=== PATIENT | female | born 1985 | race Hispanic/Latino ===

== ENCOUNTER 2017-08-04 19:37 | Emergency (ER) | payer SELFPAY ==
[2017-08-04 20:55] VITALS: BP 129/81
[2017-08-04 21:16] LABS: Basophils # (Auto) 0.1 K/mm3 (0.0-0.1); Basophils % (Auto) 1.2 % (0.0-1.8); Eosinophils % (Auto) 0.6 % (0.0-4.3); Hemoglobin 9.7 gm/dl (10.1-14.3); Lymphocytes # (Auto) 2.2 K/mm3 (1.2-5.4); Lymphocytes % (Auto) 27.8 % (13.4-35.0); Mean Corpuscular HGB Conc 30 % (30-34); Mean Corpuscular Volume 75 fl (79-97); Monocytes # (Auto) 0.9 K/mm3 (0.0-0.8); Monocytes % (Auto) 11.4 % (0.0-7.3); Platelet Count 276 K/mm3 (140-440); Red Blood Count 4.31 M/mm3 (3.65-5.03)
[2017-08-04 21:17] LABS: Hematocrit 32.1 % (30.3-42.9); Mean Corpuscular Hemoglobin 23 pg (28-32); Red Cell Distribution Width 21.1 % (13.2-15.2)
[2017-08-04 21:26] LABS: BUN/Creatinine Ratio 10; Blood Urea Nitrogen 6 mg/dL (7-17); Calcium 8.2 mg/dL (8.4-10.2); Hemolysis Index 1
== END 2017-08-04 21:20 | disposition left against medical advice (07) ==
LOC: ED 19:37
DX: Z53.21 Procedure and treatment not carried out due to patient leaving prior to being seen by health care provider (principal)
CPT/HCPCS: 36415; 80048; 85025; G0480; 80320

== ENCOUNTER 2020-11-18 12:15 | Inpatient (IN) | payer OTHER ==
--- NOTE | 2020-11-18 12:38 | Event Note ---
ED Screening Note Date of service: 11/18/20 Time: 12:36 ED Screening Note: 35-year-old female presents to the emergency room for a 1 day history of abdominal pain and 5-day history of bilateral leg pain. She has a past medical history of a gastric bypass in 2011 hysterectomy in 2019 tubal ligation in 2014. Patient came via EMS. She has multiple allergies to foods NSAIDs tramadol and aspirin. She currently takes BuSpar and Prozac. This initial assessment/diagnostic orders/clinical plan/treatment(s) is/are subject to change based on patients health status, clinical progression and re- assessment by fellow clinical providers in the ED. Further treatment and workup at subsequent clinical providers discretion. Patient/guardian urged not to elope from the ED as their condition may be serious if not clinically assessed and managed. Initial orders include:
[2020-11-18 14:41] LABS: Hematocrit 26.8 % (30.3-42.9); Mean Corpuscular HGB Conc 34 % (30-34); Mean Corpuscular Volume 93 fl (79-97); Platelet Count 109 K/mm3 (140-440); Red Blood Count 2.88 M/mm3 (3.65-5.03); Red Cell Distribution Width 29.7 % (13.2-15.2)
[2020-11-18 15:37] LABS: Alanine Aminotransferase 41 units/L (7-56); Albumin 3.1 g/dL (3.9-5); Blood Urea Nitrogen 9 mg/dL (7-17); Calcium 8.2 mg/dL (8.4-10.2); Hemolysis Index 0
[2020-11-18 15:40] LABS: BUN/Creatinine Ratio 45
[2020-11-18 16:00] LABS: Amphetamine Screen,Urine Negative; Benzodiazepines Screen,Urine Negative; Cannabinoid Screen,Urine Negative; Cocaine Screen,Urine Negative; Methadone Screen,Urine Negative; Opiate Screen,Urine Negative
[2020-11-18 16:20] LABS: Mucus,Urine 3+ /HPF
[2020-11-18 16:21] LABS: Color,Urine Amber (Yellow)
[2020-11-18 16:22] LABS: Bilirubin,Urine Moderate (Negative); Blood,Urine Small (Negative)
[2020-11-18 16:23] LABS: Protein,Urine <15 mg/dL mg/dL (Negative); Urobilinogen,Urine < 2.0 mg/dL (<2.0)
[2020-11-18] MEDS ORDERED: THIAMINE 100 MG, FOLIC ACID 1 MG, MULTIPLE VITAMIN INJ, ADULT 10 ML in SODIUM CHLORIDE ... IV ONE (17:02)
[2020-11-18] MEDS ORDERED: ONDANSETRON 4 MG/2 ML INJ IV ONE (17:02)
[2020-11-18] MEDS ORDERED: SODIUM CHLORIDE 0.9% 1000 ML 1,000 ML IV ONE (17:02)
[2020-11-18] MEDS ORDERED: HYDROmorphone 1 MG/1 ML INJ IV ONE ×2 (17:02→20:10)
--- NOTE | 2020-11-18 17:13 | Emergency Department Report ---
- General Chief complaint: Fall Stated complaint: BILATERAL LEG PAIN/ABD PAIN PUI?: No Time Seen by Provider: 11/18/20 17:01 Source: EMS Mode of arrival: Stretcher Limitations: No Limitations - History of Present Illness Initial comments: Patient is a 35-year-old female that presents emergency room with complaints of bilateral lower extremity pain. Patient states she was removed from her knees to her pelvis. Patient states the pain started 4 days ago when she fell. Patient states she fell 4 days ago due to weakness. Patient states that she is a heavy drinker and stopped drinking approximately 4 days ago. Patient denies seizure. Patient denies passing out. Patient denies loss of consciousness patient denies hitting her head. Patient states that she tends to get a little bit weak after she drinks heavily for some many days and then quits. Patient denies chest pain. Patient denies shortness of breath. Patient states the pain in her legs and thighs and pelvis are a 10 out of 10. Patient states the pain is better with rest and worse with palpation and movement. Patient states she is been a heavy drinker for many years. Patient complains of nausea and vomiting. Patient states she is having generalized abdominal pain. Patient states that the pain is worsening. Patient also complains of abdominal fullness. Patient states the abdominal pain is a pressure. Patient states that pain is better with rest and worse with movement. Patient states her abdominal pain is a 5 out of 10. Patient denies recent travel. Patient denies recent international travel. Patient denies exposure to the novel coronavirus. Patient denies sick contacts. Patient denies fever and chills. Patient denies cough. Patient denies diarrhea. Patient denies coming in contact with anybody with symptoms of the novel coronavirus. Complaint: generalized weakness -: Sudden, days(s) Location: generalized Severity: severe Severity scale (0 -10): 8 Consistency: constant Improves with: rest Worsens with: movement Associated Symptoms: loss of appetite, nausea/vomiting. denies: chest pain, confusion, dark stools, diaphoresis, dysuria, fever/chills, headaches, rash, shortness of breath, syncope - Related Data Allergies Allergy/AdvReac Type Severity Reaction Status Date / Time NSAIDS (Non-Steroidal Allergy Unknown Verified 11/18/20 17:15 Anti-Inflamma ED Review of Systems ROS: Stated complaint: BILATERAL LEG PAIN/ABD PAIN Other details as noted in HPI Constitutional: weakness. denies: chills, fever Eyes: denies: eye pain, eye discharge, vision change ENT: denies: ear pain, throat pain Respiratory: denies: cough, shortness of breath, wheezing Cardiovascular: denies: chest pain, palpitations Endocrine: no symptoms reported Gastrointestinal: as per HPI, nausea, vomiting. denies: abdominal pain, diarrhea Genitourinary: denies: urgency, dysuria, discharge Musculoskeletal: denies: back pain, joint swelling, arthralgia Skin: denies: rash, lesions Neurological: as per HPI, weakness. denies: headache, paresthesias Psychiatric: denies: anxiety, depression Hematological/Lymphatic: denies: easy bleeding, easy bruising ED Past Medical Hx - Past Medical History Previous Medical History?: Yes Hx Psychiatric Treatment: Yes (anxiety,depression) Additional medical history: alcohol abuse,DJD, gastric bypass - Surgical History Past Surgical History?: Yes Additional Surgical History: gastric bypass - Family History Family history: no significant - Social History Smoking Status: Unknown if ever smoked Substance Use Type: Alcohol ED Physical Exam - General Limitations: No Limitations General appearance: alert, in no apparent distress - Head Head exam: Present: atraumatic, normocephalic - Eye Eye exam: Present: normal appearance - ENT ENT exam: Present: mucous membranes moist - Neck Neck exam: Present: normal inspection - Respiratory Respiratory exam: Present: normal lung sounds bilaterally. Absent: respiratory distress, wheezes, rales - Cardiovascular Cardiovascular Exam: Present: regular rate, normal rhythm. Absent: systolic murmur, diastolic murmur, rubs, gallop - GI/Abdominal GI/Abdominal exam: Present: soft, normal bowel sounds. Absent: tenderness, guarding, rebound - Extremities Exam Extremities exam: Present: normal inspection - Back Exam Back exam: Present: normal inspection - Neurological Exam Neurological exam: Present: alert, oriented X3 - Psychiatric Psychiatric exam: Present: normal affect, normal mood - Skin Skin exam: Present: warm, dry, intact, normal color. Absent: rash - Assessment Assessment Interval: Baseline - Level of Consciousness 1a. Level of Consciousness: alert/keenly responsive - LOC Questions 1b. LOC Questions: answers both correctly - LOC Command 1c. LOC Commands: performs tasks correctly - Best Gaze 2. Best Gaze: normal - Visual 3. Visual: no visual loss - Facial Palsy 4. Facial Palsy: normal symmetrical movement - Motor Arm 5a. Motor Arm Left: no drift 5b. Motor Arm Right: no drift - Motor Leg 6a. Motor Leg Left: no drift 6b. Motor Leg Right: no drift - Limb Ataxia 7. Limb Ataxia: absent - Sensory 8. Sensory: normal - Best Language 9. Best Language: no aphasia - Dysarthria 10. Dysarthria: normal - Extinction and Inattention 11. Extinction/Inattention: no abnormality - Scoring Total Score: 0 Stroke Severity: No Stroke Symptoms ED Course Vital Signs 11/18/20 11/18/20 11/18/20 12:34 12:42 18:49 Temperature 99.1 F Pulse Rate 115 H 110 H Respiratory 22 12 Rate Blood Pressure Blood Pressure 112/57 [112/57] O2 Sat by Pulse 99 Oximetry 11/18/20 11/18/20 11/18/20 19:01 19:13 19:15 Temperature Pulse Rate 104 H 102 H Respiratory 18 17 17 Rate Blood Pressure 126/76 126/76 Blood Pressure [112/57] O2 Sat by Pulse 99 100 Oximetry 11/18/20 11/18/20 11/18/20 19:31 19:45 20:01 Temperature Pulse Rate 107 H 103 H 104 H Respiratory 15 13 13 Rate Blood Pressure 110/69 110/69 110/69 Blood Pressure [112/57] O2 Sat by Pulse 100 99 99 Oximetry 11/18/20 11/18/20 11/18/20 20:15 20:31 20:45 Temperature Pulse Rate 101 H 107 H 109 H Respiratory 12 16 14 Rate Blood Pressure 110/69 110/69 110/69 Blood Pressure [112/57] O2 Sat by Pulse 100 100 99 Oximetry 11/18/20 11/18/20 11/18/20 21:01 21:15 21:31 Temperature Pulse Rate 126 H 121 H 120 H Respiratory 13 10 L 15 Rate Blood Pressure 110/69 110/69 110/69 Blood Pressure [112/57] O2 Sat by Pulse 99 Oximetry 11/18/20 11/18/20 11/18/20 21:45 22:01 22:15 Temperature Pulse Rate 117 H 116 H 112 H Respiratory 16 13 15 Rate Blood Pressure 110/69 110/69 110/69 Blood Pressure [112/57] O2 Sat by Pulse Oximetry - Reevaluation(s) Reevaluation #1: Patient states her pain is better. 11/18/20 18:07 Reevaluation #2: Patient states her pain is returned. Patient was given another milligram Dilaudid. I discussed all results with patient. I discussed plan of care with patient. Patient agrees with plan of care and admission. Patient to be admitted to the hospitalist service. 11/18/20 20:08 - Consultations Consultation #1: I discussed the case with Dr. Ochoa and Dr. Ochoa wants the patient to be admitted so that he can examine the patient since there was a finding of a possible appendicitis on CT scan. 11/18/20 20:06 Consultation #2: Hospitalist consulted for admission. Hospitalist to admit patient. 11/18/20 20:30 ED Medical Decision Making - Lab Data Result diagrams: 11/18/20 13:23 11/18/20 13:23 - Radiology Data Radiology results: report reviewed CT abdomen pelvis w con INDICATION / CLINICAL INFORMATION: abd pain. n/v. TECHNIQUE: Routine CT abdomen pelvis with contrast All CT scans at this location are performed using CT dose reduction for ALARA by means of automated exposure control. COMPARISON: None available. FINDINGS: Abdomen and pelvis: Severe fatty liver. The gallbladder contains moderate sludge. The spleen, pancreas adrenal glands and kidneys are unremarkable. There is evidence of gastric bypass. There is moderate free fluid throughout much of the abdomen and lower pelvis. There is some nonspecific thickening identified within the cecum and ascending colon with extension into the proximal transverse colon. The appendix is difficult to visualize but appears to be located within the irregular fluid within the right paracolic gutter making evaluation difficult. The uterus is unremarkable. Urinary bladder is unremarkable. Review of the lower chest demonstrates no acute findings. IMPRESSION: 1. Abnormal colonic wall mucosal thickening involving the cecum, ascending colon concerning for mild colitis. There is some fluid identified throughout much of the pelvis along the right paracolic gutter. 2. The appendix is only partially visualized but appears to be surrounded by fluid from the right paracolic gutter. It is unclear if this is secondary to generalized ascites or actual underlying inflammation of the appendix. 3. Severe fatty liver - Medical Decision Making Patient is a 35-year-old female that presents emergency room with multiple complaints. Patient complains of weakness, abdominal pain, nausea, vomiting, and knee pain, thigh pain, pelvic pain secondary to fall. Patient recently stopped drinking alcohol. Patient has been drinking heavily for years. Patient stopped drinking 4 days ago. Patient denies any seizure or tremors. Patient had labs done which were remarkable for abnormal LFTs, electrolyte imbalance, dehydration, UTI. Patient given IV fluids, banana bag and Dilaudid for pain. Patient also given Zofran for nausea. Patient given IV antibiotics. Patient had a CT scan of the abdomen which showed ascites and a possible appendicitis. I discussed the case with general surgery general surgery wants patient admitted for observation and reevaluation. Patient admitted to the hospital service for further evaluation treatment. Critical care time documented due to the multiple reassessments, prolonged time at the bedside, interpretation of diagnostics and labs and discussion with consultants.. - Differential Diagnosis Fall, abdominal pain, ascites, appendicitis, UTI, contusion, sprain, strain Critical Care Time: Yes Critical care time in (mins) excluding proc time.: 35 Critical care attestation.: If time is entered above; I have spent that time in minutes in the direct care of this critically ill patient, excluding procedure time. Critical Care Time: 35 minutes ED Disposition Clinical Impression: Abnormal LFTs, Bilateral thigh pain, Pelvic pain, Alcohol abuse Abdominal pain Qualifiers: Abdominal location: generalized Qualified Code(s): R10.84 - Generalized abdominal pain Appendicitis Qualifiers: Appendicitis type: acute appendicitis Acute appendicitis type: unspecified acute appendicitis type Qualified Code(s): K35.80 - Unspecified acute appendicitis Urinary tract infection Qualifiers: Urinary tract infection type: acute cystitis Hematuria presence: with hematuria Qualified Code(s): N30.01 - Acute cystitis with hematuria Fall Qualifiers: Encounter type: initial encounter Qualified Code(s): W19.XXXA - Unspecified fall, initial encounter Knee pain, bilateral Qualifiers: Chronicity: acute Qualified Code(s): M25.561 - Pain in right knee; M25.562 - Pain in left knee Knee contusion Qualifiers: Encounter type: initial encounter Laterality: unspecified laterality Qualified Code(s): S80.00XA - Contusion of unspecified knee, initial encounter Abdominal ascites Qualifiers: Ascites type: other type Qualified Code(s): R18.8 - Other ascites Anemia Qualifiers: Anemia type: unspecified type Qualified Code(s): D64.9 - Anemia, unspecified Disposition: DC-[id number] OP ADMIT IP TO THIS HOSP Is pt being admited?: Yes Does the pt Need Aspirin: No Condition: Critical Time of Disposition: 20:13
[2020-11-18 17:37] LABS: Band Neutrophils # (Manual) 0.2 K/mm3; Total Cells Counted 100
[2020-11-18 17:41] LABS: Anisocytosis 2+; Hypochromasia 2+; Platelet Estimate Consistent w Auto; Target Cells 1+
--- NOTE | 2020-11-18 19:01 | Cat Scan Report ---
CT abdomen pelvis w con INDICATION / CLINICAL INFORMATION: abd pain. n/v. TECHNIQUE: Routine CT abdomen pelvis with contrast All CT scans at this location are performed using CT dose red uction for ALARA by means of automated exposure control. COMPARISON: None available. FINDINGS: Abdomen and pelvis: Severe fatty liver. The gallbladder contains moderate sludge. The spleen, pancrea s adrenal glands and kidneys are unremarkable. There is evidence of gastric bypass. There is moderate free fluid throughout much of the abdomen and lower pelvis. There is some nonspecific thickening identified within the cecum and ascending colon wi th extension into the proximal transverse colon. The appendix is difficult to visualize but appears t o be located within the irregular fluid within the right paracolic gutter making evaluation difficult . The uterus is unremarkable. Urinary bladder is unremarkable. Review of the lower chest demonstrates no acute findings. IMPRESSION: 1. Abnormal colonic wall mucosal thickening involving the cecum, ascending colon concerning for mild colitis. There is some fluid identified throughout much of the pelvis along the right paracolic gutte r. 2. The appendix is only partially visualized but appears to be surrounded by fluid from the right par acolic gutter. It is unclear if this is secondary to generalized ascites or actual underlying inflamm ation of the appendix. 3. Severe fatty liver Signer Name: Maikol Hickman MD Signed: 11/18/2020 6:56 PM Workstation Name: [email or web address]
--- NOTE | 2020-11-18 19:39 | XRay Report ---
[facility] CLINICAL DATA: fall. pain TECHNICAL DATA: Two views were obtained, AP and lateral FINDINGS: There is no acute fracture or dislocation. The visualized joint spaces are normal. IMPRESSION: No acute radiographic abnormality. Signer Name: Ronnie Walls MD Signed: 11/18/2020 7:35 PM Workstation Name: [id number]
[2020-11-18] MEDS ORDERED: cefTRIAXone/NS 2 GM/100 ML 2 GM/100 ML BAG IV ONE (20:03)
[2020-11-18] MEDS ORDERED: PIPERACIL/TAZOBACTA 4.5/NS 100 4.5 GM/100 ML VIAL IV ONE (20:09)
[2020-11-18] MEDS ORDERED: POTASSIUM CHLORIDE 20 MEQ 20 MEQ/100 ML BAG IV ONE (20:10)
[2020-11-18] MEDS ORDERED: LORazepam 2 MG/ML VIAL IV PRN ×2 (20:12)
--- NOTE | 2020-11-18 20:37 | XRay Report ---
HISTORY:pain. fall COMPARISON: None. TECHNIQUE: AP lateral and obliques views were obtained FINDINGS: Bones: No fracture or dislocation. Joint spaces: Maintained. Soft tissues: No significant abnormality. Additional findings: None. IMPRESSION: 1. No significant abnormality. Signer Name: Ronnie Walls MD Signed: 11/18/2020 8:32 PM Workstation Name: [id number]
[2020-11-18] MEDS ORDERED: ALBUTEROL 2.5 MG/3 ML NEBU IH PRN (21:43)
[2020-11-18] MEDS ORDERED: hydrALAZINE 20 MG/1 ML INJ IV PRN (21:44)
--- NOTE | 2020-11-18 21:51 | History and Physical Report ---
History of Present Illness Date of examination: 11/18/20 Date of admission: 11/18/20 20:16 Chief complaint: Bilateral leg pain Abdominal pain History of present illness: 35-year-old female with past medical history of alcohol abuse, anxiety depression was brought to the emergency room because of bilateral lower extremity pain. Patient states the pain started 4 days ago when she fell. Patient states she fell 4 days ago due to weakness. Patient states that she is a heavy drinker and stopped drinking approximately 4 days ago. Patient denies seizure. Patient denies passing out. Patient denies loss of consciousness patient denies hitting her head. Patient states that she tends to get a little bit weak after she drinks heavily for some many days and then quits. Patient denies chest pain. Patient denies shortness of breath. Patient states the pain in her legs and thighs and pelvis are a 10 out of 10. Patient states the pain is better with rest and worse with palpation and movement. Patient states she is been a heavy drinker for many years. Patient complains of nausea and vomiting. Patient states she is having generalized abdominal pain. Patient states that the pain is worsening. Patient also complains of abdominal fullness. Patient states the abdominal pain is a pressure. Patient states that pain is better with rest and worse with movement. Patient states her abdominal pain is a 5 out of 10. In the emergency room CT scan of the abdomen pelvis showed abnormal colonic wall mucosal thickening involving the cecum, ascending colon concerning for mild colitis. There is some fluid identified throughout much of the pelvis along the right paracolic gutter. The PET appendix is only partially visualized but appears to be surrounded by the fluid from the right paracolic gutter. It is unclear if this is secondary to generalized ascites or actual underlying inflammation of the appendix. Past History Past Medical History: other (Depression anxiety alcohol abuse) Medications and Allergies Allergies Allergy/AdvReac Type Severity Reaction Status Date / Time NSAIDS (Non-Steroidal Allergy Unknown Verified 11/18/20 17:15 Anti-Inflamma Active Meds: Active Medications Acetaminophen (Acetaminophen 325 Mg Tab) 650 mg PO Q4H PRN PRN Reason: Pain MILD(1-3)/Fever >100.5/SWIFT Albuterol (Albuterol 2.5 Mg/3 Ml Nebu) 2.5 mg IH Q4HRT PRN PRN Reason: Shortness Of Breath Dextrose/Sodium Chloride (D5/0.45ns) 1,000 mls @ 100 mls/hr IV DIRECT OUMAR Lorazepam (Lorazepam 2 Mg/Ml Vial) 2 mg IV Q1HR PRN PRN Reason: CIWA-Ar 8-15 Lorazepam (Lorazepam 2 Mg/Ml Vial) 4 mg IV Q1HR PRN PRN Reason: CIWA-Ar 16-25 Lorazepam (Lorazepam 2 Mg/Ml Vial) 4 mg IV Q15MIN PRN PRN Reason: CIWA-Ar >25 Ondansetron HCl (Ondansetron 4 Mg/2 Ml Inj) 4 mg IV Q8H PRN PRN Reason: Nausea And Vomiting Sodium Chloride (Sodium Chloride 0.9% 10 Ml Flush Syringe) 10 ml IV BID OUMAR Sodium Chloride (Sodium Chloride 0.9% 10 Ml Flush Syringe) 10 ml IV PRN PRN PRN Reason: LINE FLUSH Review of Systems Gastrointestinal: abdominal pain, nausea, vomiting Musculoskeletal: other (Bilateral knee pain leg pain) Exam - Constitutional Vitals: Temp Pulse Resp BP Pulse Ox 99.1 F 109 H 14 110/69 99 11/18/20 12:42 11/18/20 20:45 11/18/20 20:45 11/18/20 20:45 11/18/20 20:45 General appearance: Present: no acute distress, well-nourished - EENT Eyes: Present: PERRL ENT: hearing intact, clear oral mucosa - Neck Neck: Present: supple, normal ROM - Respiratory Respiratory effort: normal Respiratory: bilateral: CTA - Cardiovascular Heart Sounds: Present: S1 & S2. Absent: rub, click - Extremities Extremities: pulses symmetrical, No edema Peripheral Pulses: within normal limits - Abdominal General gastrointestinal: Present: soft, tender, non-distended, normal bowel sounds Female genitourinary: Present: normal - Integumentary Integumentary: Present: clear, warm, dry, jaundice - Musculoskeletal Musculoskeletal: strength equal bilaterally, other (Bilateral knee pain) - Psychiatric Psychiatric: appropriate mood/affect, intact judgment & insight - Neurologic Neurologic: CNII-XII intact, moves all extremities Results - Labs CBC & Chem 7: 11/18/20 13:23 11/18/20 13:23 Labs: Laboratory Last Values WBC 5.1 K/mm3 (4.5-11.0) 11/18/20 13:23 RBC 2.88 M/mm3 (3.65-5.03) L 11/18/20 13:23 Hgb 9.0 gm/dl (10.1-14.3) L 11/18/20 13:23 Hct 26.8 % (30.3-42.9) L 11/18/20 13:23 MCV 93 fl (79-97) 11/18/20 13:23 MCH 31 pg (28-32) 11/18/20 13:23 MCHC 34 % (30-34) 11/18/20 13:23 RDW 29.7 % (13.2-15.2) H 11/18/20 13:23 Plt Count 109 K/mm3 (140-440) L 11/18/20 13:23 Add Manual Diff Complete 11/18/20 13:23 Total Counted 100 11/18/20 13:23 Seg Neuts % (Manual) 77.0 % (40.0-70.0) H 11/18/20 13:23 Band Neutrophils % 4.0 % 11/18/20 13:23 Lymphocytes % (Manual) 18.0 % (13.4-35.0) 11/18/20 13:23 Monocytes % (Manual) 1.0 % (0.0-7.3) 11/18/20 13:23 Nucleated RBC % 3.0 % (0.0-0.9) H 11/18/20 13:23 Seg Neutrophils # Man 3.9 K/mm3 (1.8-7.7) 11/18/20 13:23 Band Neutrophils # 0.2 K/mm3 11/18/20 13:23 Lymphocytes # (Manual) 0.9 K/mm3 (1.2-5.4) L 11/18/20 13:23 Abs React Lymphs (Man) 0.0 K/mm3 11/18/20 13:23 Monocytes # (Manual) 0.1 K/mm3 (0.0-0.8) 11/18/20 13:23 Eosinophils # (Manual) 0.0 K/mm3 (0.0-0.4) 11/18/20 13:23 Basophils # (Manual) 0.0 K/mm3 (0.0-0.1) 11/18/20 13:23 Metamyelocytes # 0.0 K/mm3 11/18/20 13:23 Myelocytes # 0.0 K/mm3 11/18/20 13:23 Promyelocytes # 0.0 K/mm3 11/18/20 13:23 Blast Cells # 0.0 K/mm3 11/18/20 13:23 WBC Morphology Not Reportable 11/18/20 13:23 Hypersegmented Neuts Not Reportable 11/18/20 13:23 Hyposegmented Neuts Not Reportable 11/18/20 13:23 Hypogranular Neuts Not Reportable 11/18/20 13:23 Smudge Cells Not Reportable 11/18/20 13:23 Toxic Granulation Not Reportable 11/18/20 13:23 Toxic Vacuolation Not Reportable 11/18/20 13:23 Dohle Bodies Not Reportable 11/18/20 13:23 Pelger-Huet Anomaly Not Reportable 11/18/20 13:23 Stefani Rods Not Reportable 11/18/20 13:23 Platelet Estimate Consistent w auto 11/18/20 13:23 Clumped Platelets Not Reportable 11/18/20 13:23 Plt Clumps, EDTA Not Reportable 11/18/20 13:23 Large Platelets Not Reportable 11/18/20 13:23 Giant Platelets Not Reportable 11/18/20 13:23 Platelet Satelliting Not Reportable 11/18/20 13:23 Plt Morphology Comment Not Reportable 11/18/20 13:23 RBC Morphology Not Reportable 11/18/20 13:23 Dimorphic RBCs Not Reportable 11/18/20 13:23 Polychromasia Not Reportable 11/18/20 13:23 Hypochromasia 2+ 11/18/20 13:23 Poikilocytosis Not Reportable 11/18/20 13:23 Anisocytosis 2+ 11/18/20 13:23 Microcytosis Not Reportable 11/18/20 13:23 Macrocytosis Not Reportable 11/18/20 13:23 Spherocytes Not Reportable 11/18/20 13:23 Pappenheimer Bodies Not Reportable 11/18/20 13:23 Sickle Cells Not Reportable 11/18/20 13:23 Target Cells 1+ 11/18/20 13:23 Tear Drop Cells Not Reportable 11/18/20 13:23 Ovalocytes Not Reportable 11/18/20 13:23 Helmet Cells Not Reportable 11/18/20 13:23 Atkinson-Welcome Bodies Not Reportable 11/18/20 13:23 [place] Rings Not Reportable 11/18/20 13:23 Mikael Cells Not Reportable 11/18/20 13:23 Bite Cells Not Reportable 11/18/20 13:23 Crenated Cell Not Reportable 11/18/20 13:23 Elliptocytes Not Reportable 11/18/20 13:23 Acanthocytes (Spur) Not Reportable 11/18/20 13:23 Rouleaux Not Reportable 11/18/20 13:23 Hemoglobin C Crystals Not Reportable 11/18/20 13:23 Schistocytes Not Reportable 11/18/20 13:23 Malaria parasites Not Reportable 11/18/20 13:23 Artemio Bodies Not Reportable 11/18/20 13:23 Hem Pathologist Commnt No 11/18/20 13:23 Sodium 130 mmol/L (137-145) L 11/18/20 13:23 Potassium 3.0 mmol/L (3.6-5.0) L 11/18/20 13:23 Chloride 85.6 mmol/L (98-107) L 11/18/20 13:23 Carbon Dioxide 28 mmol/L (22-30) 11/18/20 13:23 Anion Gap 19 mmol/L 11/18/20 13:23 BUN 9 mg/dL (7-17) 11/18/20 13:23 Creatinine 0.2 mg/dL (0.6-1.2) L 11/18/20 13:23 Estimated GFR > 60 ml/min 11/18/20 13:23 BUN/Creatinine Ratio 45 % 11/18/20 13:23 Glucose 56 mg/dL (65-100) L 11/18/20 13:23 Calcium 8.2 mg/dL (8.4-10.2) L 11/18/20 13:23 Total Bilirubin 8.60 mg/dL (0.1-1.2) H 11/18/20 13:23 AST 95 units/L (5-40) H 11/18/20 13:23 ALT 41 units/L (7-56) 11/18/20 13:23 Alkaline Phosphatase 233 units/L (35-129) H 11/18/20 13:23 Total Protein 6.3 g/dL (6.3-8.2) 11/18/20 13:23 Albumin 3.1 g/dL (3.9-5) L 11/18/20 13:23 Albumin/Globulin Ratio 1.0 % 11/18/20 13:23 Lipase 64 units/L (13-60) H 11/18/20 13:23 HCG, Quant < 2 mIU/mL (0-4) 11/18/20 13:23 Urine Color Bri (Yellow) 11/18/20 14:27 Urine Turbidity Clear (Clear) 11/18/20 14:27 Urine pH 5.0 (5.0-7.0) 11/18/20 14:27 Ur Specific [place] 1.035 (1.003-1.030) H 11/18/20 14:27 Urine Protein <15 mg/dl mg/dL (Negative) 11/18/20 14:27 Urine Glucose (UA) Negative mg/dL (Negative) 11/18/20 14:27 Urine Ketones Negative mg/dL (Negative) 11/18/20 14:27 Urine Blood Small (Negative) A 11/18/20 14:27 Urine Nitrite Negative (Negative) 11/18/20 14:27 Ur Reducing Substances Not Reportable 11/18/20 14:27 Urine Bilirubin Moderate (Negative) 11/18/20 14:27 Urine Ictotest Not Reportable 11/18/20 14:27 Urine Urobilinogen < 2.0 mg/dL (<2.0) 11/18/20 14:27 Ur Leukocyte Esterase Small (Negative) 11/18/20 14:27 Urine WBC (Auto) 43.0 /HPF (0.0-6.0) H 11/18/20 14:27 Urine RBC (Auto) 10.0 /HPF (0.0-6.0) 11/18/20 14:27 U Epithel Cells (Auto) 7.0 /HPF (0-13.0) 11/18/20 14:27 Urine Mucus 3+ /HPF 11/18/20 14:27 Urine Opiates Screen Negative 11/18/20 14:27 Urine Methadone Screen Negative 11/18/20 14:27 Ur Barbiturates Screen Negative 11/18/20 14:27 Ur Phencyclidine Scrn Negative 11/18/20 14:27 Ur Amphetamines Screen Negative 11/18/20 14:27 U Benzodiazepines Scrn Negative 11/18/20 14:27 Urine Cocaine Screen Negative 11/18/20 14:27 U Marijuana (THC) Screen Negative 11/18/20 14:27 Drugs of Abuse Note Disclamer 11/18/20 14:27 - Imaging and Cardiology CT scan - abdomen: report reviewed Assessment and Plan VTE prophylaxis?: Chemical Plan of care discussed with patient/family: Yes - Patient Problems (1) Appendicitis Current Visit: Yes Status: Acute Qualifiers: Appendicitis type: acute appendicitis Acute appendicitis type: unspecified acute appendicitis type Qualified Code(s): K35.80 - Unspecified acute a ppendicitis Plan to address problem: Admit the patient to the medical telemetry. Nothing by mouth. D5 half-normal saline at the rate of 100 cc/h. Pepcid 20 mg IV every 12 hours. Zosyn 4.5 g IV every 8 hours. We do the blood culture. We also consult surgery for evaluation and treatment (2) Abdominal pain Current Visit: Yes Status: Acute Qualifiers: Abdominal location: generalized Qualified Code(s): R10.84 - Generalized abdominal pain Plan to address problem: Nothing by mouth. D5 half-normal saline at the rate of 100 cc/h. Pepcid 20 mg IV every 12 hours. Morphine 2 mg IV every 4 hours as needed. Zosyn 4.5 g IV every 8 hours. We do the blood culture. We also consult surgery for evaluation and treatment (3) Alcohol abuse Current Visit: Yes Status: Acute Plan to address problem: We counseled the patient regarding quit drinking. We will put the patient on thiamine 100 mg IV daily and folic acid 1 mg p.o. daily. We also put the patient on banana bag daily (4) Fall Current Visit: Yes Status: Acute Qualifiers: Encounter type: initial encounter Qualified Code(s): W19.XXXA - Unspecified fall, initial encounter Plan to address problem: Patient is on fall precaution. Will consult physical therapy (5) Knee contusion Current Visit: Yes Status: Acute Qualifiers: Encounter type: initial encounter Laterality: unspecified laterality Qualified Code(s): S80.00XA - Contusion of unspecified knee, initial encounter Plan to address problem: Tylenol 650 mg p.o. every 6 hours as needed. Morphine 2 mg IV every 4 hours as needed. Will consult physical therapy (6) Urinary tract infection Current Visit: Yes Status: Acute Qualifiers: Urinary tract infection type: acute cystitis Hematuria presence: with hematuria Qualified Code(s): N30.01 - Acute cystitis with hematuria Plan to address problem: Zosyn 4.5 g IV every every 8 hours as needed. We will do the blood culture urine culture (7) DVT prophylaxis Current Visit: Yes Status: Acute Plan to address problem: Heparin 5000 units subcu every 8 hours for DVT prophylaxis. Pepcid 20 mg IV every 12 hours for GI prophylaxis. Patient is a full code (8) Abnormal LFTs Current Visit: Yes Status: Acute Plan to address problem: Nothing by mouth. D5 half-normal saline at the rate of 100 cc/h. Pepcid 20 mg IV every 12 hours. We will repeat the CMP in the morning. Consult GI if needed in the morning. we also consult surgery for evaluation and treatment
[2020-11-18] MEDS ORDERED: D5W/0.45% NACL 1,000 ML IV SCH (22:00)
[2020-11-18] MEDS: ONDANSETRON 4 MG/2 ML INJ IV PRN (22:30)
[2020-11-18] MEDS: FAMOTIDINE 20 MG/2 ML INJ IV SCH (23:22)
[2020-11-18] MEDS: HEPARIN 5,000 UNIT/1 ML VIAL SUB-Q SCH (23:22)
[2020-11-18] MEDS ORDERED: POTASSIUM CHLORIDE ER 20 MEQ TAB PO SCH (23:45)
[2020-11-19] MEDS: MORPHINE 2 MG/1 ML INJ IV PRN ×5 (01:31→20:20)
[2020-11-19] MEDS: LORazepam 2 MG/ML VIAL IV PRN (01:32)
[2020-11-19 04:57] LABS: Hematocrit 22.7 % (30.3-42.9); Hemoglobin 7.5 gm/dl (10.1-14.3); Mean Corpuscular HGB Conc 33 % (30-34); Mean Corpuscular Volume 94 fl (79-97)
[2020-11-19 05:05] LABS: Platelet Count 99 K/mm3 (140-440); Red Cell Distribution Width 29.4 % (13.2-15.2)
[2020-11-19 05:15] LABS: Blood Urea Nitrogen 9 mg/dL (7-17); Calcium 7.3 mg/dL (8.4-10.2); Hemolysis Index 0
[2020-11-19 05:17] LABS: BUN/Creatinine Ratio 45
[2020-11-19 05:58] LABS: Total Cells Counted 100
[2020-11-19 05:59] LABS: Anisocytosis 1+; Hypochromasia 1+; Macrocytosis 1+; Platelet Estimate Consistent w Auto; Target Cells 1+
[2020-11-19] MEDS: HEPARIN 5,000 UNIT/1 ML VIAL SUB-Q SCH ×3 (07:00→21:54)
[2020-11-19] MEDS: PIPERACIL/TAZOBACTA 4.5/NS 100 4.5 GM/100 ML VIAL IV SCH ×3 (07:00→21:55)
--- NOTE | 2020-11-19 08:25 | Progress Note ---
Assessment and Plan Assessment and plan: --Possible acute appendicitis Current Visit: Yes Status: Acute N.p.o. status , IV fluids , IV antibiotics , supportive care Surgery consulted , follow evaluation and recommendations --Possible colitis ascending colon Current Visit: Yes Status: Acute N.p.o., IV fluids, IV pain medications, IV antibiotics Surgery consulted, consider GI evaluation if needed. --Anemia; Current Visit: Yes Status: Acute. Hb droppedfrom 9-7.5 Closely monitor H&H and transfuse as needed --Hypokalemia; Current Visit: Yes Status: Acute Replenish per protocol with IV potassium chloride. Follow magnesium levels --Hyponatremia; Current Visit: Yes Status: Acute. IV normal saline monitor electrolytes --Moderate malnutrition/hypoalbuminemia Current Visit: Yes Status: Acute. Albumin 3.0, nutrition supplements Supportive care, nutrition consult if needed --History of chronic alcohol abuse Current Visit: Yes Status: Acute Strongly advised to quit alcohol intake, monitor for any alcohol withdrawal symptoms Initiate CIWA protocol if needed, thiamine folic acid multivitamin, IV fluids with banana bag --Abnormal LFTs/alcohol hepatitis Current Visit: Yes Status: Acute Treat the underlying cause advised to quit alcohol intake Closely monitor LFTs, GI evaluation if needed --History of fall/probably alcohol related Current Visit: Yes Status: Acute Patient is on fall precaution. PT OT evaluation and recommendations -- Knee contusion secondary to fall Current Visit: Yes Status: Acute Supportive care, pain medications, closely monitor --Possible urinary tract infection Current Visit: Yes Status: Acute Zosyn 4.5 g IV every every 8 hours Follow cultures, plenty of oral, IV fluids. --GERD; Current Visit: Yes Status: Acute IV Protonix --DVT prophylaxis Current Visit: Yes Status: Acute Heparin 5000 units subcu every 8 hours for DVT prophylaxis. Closely monitor the patient and adjust management as needed Plan of care reviewed with the patient and her nurse Follow surgery evaluation recommendations History Interval history: I seen and examined the patient at the bedside Patient's chart and medications reviewed Admitted with abdominal pain, possible appendicitis/colitis Patient is n.p.o. status Complains of abdominal pain Vital signs noted Hospitalist Physical - Constitutional Vitals: Temp Pulse Resp BP Pulse Ox 98.5 F 81 16 97/54 98 11/19/20 07:27 11/19/20 07:27 11/19/20 07:27 11/19/20 07:27 11/19/20 07:27 General appearance: Present: no acute distress, well-nourished - EENT Eyes: Present: PERRL, EOM intact - Neck Neck: Present: supple, normal ROM - Respiratory Respiratory effort: normal Respiratory: bilateral: diminished, negative: rales, rhonchi, wheezing - Cardiovascular Rhythm: regular Heart Sounds: Present: S1 & S2 - Extremities Extremities: no ischemia, No edema - Abdominal General gastrointestinal: soft, non-tender, non-distended, normal bowel sounds - Integumentary Integumentary: Present: clear, warm - Psychiatric Psychiatric: appropriate mood/affect, cooperative - Neurologic Neurologic: CNII-XII intact, moves all extremities Results - Labs CBC & Chem 7: 11/19/20 04:35 11/19/20 04:35 Labs: Laboratory Last Values WBC 5.5 K/mm3 (4.5-11.0) 11/19/20 04:35 RBC 2.40 M/mm3 (3.65-5.03) L 11/19/20 04:35 Hgb 7.5 gm/dl (10.1-14.3) L 11/19/20 04:35 Hct 22.7 % (30.3-42.9) L 11/19/20 04:35 MCV 94 fl (79-97) 11/19/20 04:35 MCH 31 pg (28-32) 11/19/20 04:35 MCHC 33 % (30-34) 11/19/20 04:35 RDW 29.4 % (13.2-15.2) H 11/19/20 04:35 Plt Count 99 K/mm3 (140-440) L 11/19/20 04:35 Add Manual Diff Complete 11/19/20 04:35 Total Counted 100 11/19/20 04:35 Seg Neuts % (Manual) 61.0 % (40.0-70.0) 11/19/20 04:35 Band Neutrophils % 4.0 % 11/18/20 13:23 Lymphocytes % (Manual) 37.0 % (13.4-35.0) H 11/19/20 04:35 Monocytes % (Manual) 1.0 % (0.0-7.3) 11/18/20 13:23 Eosinophils % (Manual) 2.0 % (0.0-4.3) 11/19/20 04:35 Nucleated RBC % Not Reportable 11/19/20 04:35 Seg Neutrophils # Man 3.4 K/mm3 (1.8-7.7) 11/19/20 04:35 Band Neutrophils # 0.0 K/mm3 11/19/20 04:35 Lymphocytes # (Manual) 2.0 K/mm3 (1.2-5.4) 11/19/20 04:35 Abs React Lymphs (Man) 0.0 K/mm3 11/19/20 04:35 Monocytes # (Manual) 0.0 K/mm3 (0.0-0.8) 11/19/20 04:35 Eosinophils # (Manual) 0.1 K/mm3 (0.0-0.4) 11/19/20 04:35 Basophils # (Manual) 0.0 K/mm3 (0.0-0.1) 11/19/20 04:35 Metamyelocytes # 0.0 K/mm3 11/19/20 04:35 Myelocytes # 0.0 K/mm3 11/19/20 04:35 Promyelocytes # 0.0 K/mm3 11/19/20 04:35 Blast Cells # 0.0 K/mm3 11/19/20 04:35 WBC Morphology Not Reportable 11/19/20 04:35 Hypersegmented Neuts Not Reportable 11/19/20 04:35 Hyposegmented Neuts Not Reportable 11/19/20 04:35 Hypogranular Neuts Not Reportable 11/19/20 04:35 Smudge Cells Not Reportable 11/19/20 04:35 Toxic Granulation Not Reportable 11/19/20 04:35 Toxic Vacuolation Not Reportable 11/19/20 04:35 Dohle Bodies Not Reportable 11/19/20 04:35 Pelger-Huet Anomaly Not Reportable 11/19/20 04:35 Stefani Rods Not Reportable 11/19/20 04:35 Platelet Estimate Consistent w auto 11/19/20 04:35 Clumped Platelets Not Reportable 11/19/20 04:35 Plt Clumps, EDTA Not Reportable 11/19/20 04:35 Large Platelets Not Reportable 11/19/20 04:35 Giant Platelets Not Reportable 11/19/20 04:35 Platelet Satelliting Not Reportable 11/19/20 04:35 Plt Morphology Comment Not Reportable 11/19/20 04:35 RBC Morphology Not Reportable 11/19/20 04:35 Dimorphic RBCs Not Reportable 11/19/20 04:35 Polychromasia Not Reportable 11/19/20 04:35 Hypochromasia 1+ 11/19/20 04:35 Poikilocytosis Not Reportable 11/19/20 04:35 Anisocytosis 1+ 11/19/20 04:35 Microcytosis Not Reportable 11/19/20 04:35 Macrocytosis 1+ 11/19/20 04:35 Spherocytes Not Reportable 11/19/20 04:35 Pappenheimer Bodies Not Reportable 11/19/20 04:35 Sickle Cells Not Reportable 11/19/20 04:35 Target Cells 1+ 11/19/20 04:35 Tear Drop Cells Not Reportable 11/19/20 04:35 Ovalocytes Not Reportable 11/19/20 04:35 Helmet Cells Not Reportable 11/19/20 04:35 Atkinson-Jemison Bodies Not Reportable 11/19/20 04:35 [place] Rings Not Reportable 11/19/20 04:35 Mikael Cells Not Reportable 11/19/20 04:35 Bite Cells Not Reportable 11/19/20 04:35 Crenated Cell Not Reportable 11/19/20 04:35 Elliptocytes Not Reportable 11/19/20 04:35 Acanthocytes (Spur) Not Reportable 11/19/20 04:35 Rouleaux Not Reportable 11/19/20 04:35 Hemoglobin C Crystals Not Reportable 11/19/20 04:35 Schistocytes Not Reportable 11/19/20 04:35 Malaria parasites Not Reportable 11/19/20 04:35 Artemio Bodies Not Reportable 11/19/20 04:35 Hem Pathologist Commnt No 11/19/20 04:35 Sodium 131 mmol/L (137-145) L 11/19/20 04:35 Potassium 3.1 mmol/L (3.6-5.0) L 11/19/20 04:35 Chloride 91.9 mmol/L (98-107) L 11/19/20 04:35 Carbon Dioxide 31 mmol/L (22-30) H 11/19/20 04:35 Anion Gap 11 mmol/L 11/19/20 04:35 BUN 9 mg/dL (7-17) 11/19/20 04:35 Creatinine 0.2 mg/dL (0.6-1.2) L 11/19/20 04:35 Estimated GFR > 60 ml/min 11/19/20 04:35 BUN/Creatinine Ratio 45 % 11/19/20 04:35 Glucose 77 mg/dL (65-100) 11/19/20 04:35 Calcium 7.3 mg/dL (8.4-10.2) L 11/19/20 04:35 Total Bilirubin 8.60 mg/dL (0.1-1.2) H 11/18/20 13:23 AST 95 units/L (5-40) H 11/18/20 13:23 ALT 41 units/L (7-56) 11/18/20 13:23 Alkaline Phosphatase 233 units/L (35-129) H 11/18/20 13:23 Total Protein 6.3 g/dL (6.3-8.2) 11/18/20 13:23 Albumin 3.1 g/dL (3.9-5) L 11/18/20 13:23 Albumin/Globulin Ratio 1.0 % 11/18/20 13:23 Lipase 64 units/L (13-60) H 11/18/20 13:23 HCG, Quant < 2 mIU/mL (0-4) 11/18/20 13:23 Urine Color Bri (Yellow) 11/18/20 14:27 Urine Turbidity Clear (Clear) 11/18/20 14:27 Urine pH 5.0 (5.0-7.0) 11/18/20 14:27 Ur Specific [place] 1.035 (1.003-1.030) H 11/18/20 14:27 Urine Protein <15 mg/dl mg/dL (Negative) 11/18/20 14:27 Urine Glucose (UA) Negative mg/dL (Negative) 11/18/20 14:27 Urine Ketones Negative mg/dL (Negative) 11/18/20 14:27 Urine Blood Small (Negative) A 11/18/20 14:27 Urine Nitrite Negative (Negative) 11/18/20 14:27 Ur Reducing Substances Not Reportable 11/18/20 14:27 Urine Bilirubin Moderate (Negative) 11/18/20 14:27 Urine Ictotest Not Reportable 11/18/20 14:27 Urine Urobilinogen < 2.0 mg/dL (<2.0) 11/18/20 14:27 Ur Leukocyte Esterase Small (Negative) 11/18/20 14:27 Urine WBC (Auto) 43.0 /HPF (0.0-6.0) H 11/18/20 14:27 Urine RBC (Auto) 10.0 /HPF (0.0-6.0) 11/18/20 14:27 U Epithel Cells (Auto) 7.0 /HPF (0-13.0) 11/18/20 14:27 Urine Mucus 3+ /HPF 11/18/20 14:27 Urine Opiates Screen Negative 11/18/20 14:27 Urine Methadone Screen Negative 11/18/20 14:27 Ur Barbiturates Screen Negative 11/18/20 14:27 Ur Phencyclidine Scrn Negative 11/18/20 14:27 Ur Amphetamines Screen Negative 11/18/20 14:27 U Benzodiazepines Scrn Negative 11/18/20 14:27 Urine Cocaine Screen Negative 11/18/20 14:27 U Marijuana (THC) Screen Negative 11/18/20 14:27 Drugs of Abuse Note Disclamer 11/18/20 14:27 [place]keon/IV: Voiding Method Toilet Active Medications - Current Medications Current Medications: Generic Name Dose Route Start Last Admin Trade Name Freq PRN Reason Stop Dose Admin Acetaminophen 650 mg 11/18/20 21:43 Acetaminophen 325 Mg Tab PO Q4H PRN Pain MILD(1-3)/Fever >100.5/SWIFT Albuterol 2.5 mg 11/18/20 21:43 Albuterol 2.5 Mg/3 Ml Nebu IH Q4HRT PRN Shortness Of Breath Famotidine 20 mg 11/18/20 22:00 11/18/20 23:22 Famotidine 20 Mg/2 Ml Inj IV 20 mg BID OUMAR Administration Heparin Sodium (Porcine) 5,000 unit 11/18/20 22:00 11/19/20 07:00 Heparin 5,000 Unit/1 Ml Vial SUB-Q 5,000 unit Q8HR OUMAR Administration Hydralazine HCl 10 mg 11/18/20 21:44 Hydralazine 20 Mg/1 Ml Inj IV Q6H PRN htn Dextrose/Sodium Chloride 1,000 mls @ 100 mls/hr 11/18/20 22:00 11/19/20 02:02 D5/0.45ns IV 100 mls/hr DIRECT OUMAR Administration Piperacillin Sod/Tazobactam Sod 4.5 gm in 100 mls @ 200 mls/hr 11/19/20 06:00 11/19/20 07:00 Zosyn/Ns 4.5gm/100ml IV 200 mls/hr Q8H OUMAR Administration Protocol Thiamine HCl 100 mg/ Folic 1,011.2 mls @ 250 mls/hr 11/19/20 19:00 Acid 1 mg/ Multivitamins/ IV 11/19/20 23:02 Minerals 10 ml/ Sodium DAILY ONE Chloride Potassium Chloride 10 meq in 100 mls @ 100 mls/hr 11/19/20 09:00 Kcl 10meq/100ml IV 11/19/20 12:59 Q1H OUMAR Lorazepam 2 mg 11/18/20 20:12 11/19/20 01:32 Lorazepam 2 Mg/Ml Vial IV 2 mg Q1HR PRN Administration CIWA-Ar 8-15 Lorazepam 4 mg 11/18/20 20:12 Lorazepam 2 Mg/Ml Vial IV Q1HR PRN CIWA-Ar 16-25 Lorazepam 4 mg 11/18/20 20:12 Lorazepam 2 Mg/Ml Vial IV Q15MIN PRN CIWA-Ar >25 Morphine Sulfate 2 mg 11/18/20 21:43 11/19/20 07:07 Morphine 2 Mg/1 Ml Inj IV 2 mg Q4H PRN Administration Pain, Moderate (4-6) Ondansetron HCl 4 mg 11/18/20 21:43 11/18/20 22:30 Ondansetron 4 Mg/2 Ml Inj IV 4 mg Q8H PRN Administration Nausea And Vomiting Potassium Chloride 40 meq 11/18/20 23:45 Potassium Chloride Er 20 Meq Tab PO 11/19/20 23:46 ONCE OUMAR Sodium Chloride 10 ml 11/18/20 22:00 11/18/20 22:46 Sodium Chloride 0.9% 10 Ml Flush Syringe IV 10 ml BID OUMAR Administration Sodium Chloride 10 ml 11/18/20 21:43 Sodium Chloride 0.9% 10 Ml Flush Syringe IV PRN PRN LINE FLUSH
[2020-11-19] MEDS: SODIUM CHLORIDE 0.9% 1000 ML 1,000 ML IV SCH (10:40)
[2020-11-19] MEDS: FAMOTIDINE 20 MG/2 ML INJ IV SCH ×2 (10:41→21:54)
[2020-11-19] MEDS: POTASSIUM CHLORIDE 10 MEQ 10 MEQ/100 ML BAG IV SCH ×4 (10:41→12:45)
--- NOTE | 2020-11-19 17:03 | Consultation ---
History of Present Illness Consult date: 11/19/20 Reason for consult: abdominal pain - History of present illness History of present illness: 35 yo alcoholic female admitted with BLE pain. She also c/o abdominal pain, nausea and vomiting. She is passing flatus. Last BM was yesterday. Her abdominal pain is better c/w yesterday. Last emesis was yesterday. Past History Past Medical History: other (Depression anxiety alcohol abuse) Medications and Allergies Allergies Allergy/AdvReac Type Severity Reaction Status Date / Time NSAIDS (Non-Steroidal Allergy Unknown Verified 11/18/20 17:15 Anti-Inflamma Home Medications Medication Instructions Recorded Confirmed Last Taken Type Buspirone HCl [busPIRone] 15 mg PO TID PRN 11/19/20 11/19/20 Unknown History FLUoxetine 20 mg PO DAILY 11/19/20 11/19/20 Unknown History Xanax TAB 1 mg PO BID PRN 11/19/20 11/19/20 Unknown History Active Meds: Active Medications Acetaminophen (Acetaminophen 325 Mg Tab) 650 mg PO Q4H PRN PRN Reason: Pain MILD(1-3)/Fever >100.5/SWIFT Albuterol (Albuterol 2.5 Mg/3 Ml Nebu) 2.5 mg IH Q4HRT PRN PRN Reason: Shortness Of Breath Famotidine (Famotidine 20 Mg/2 Ml Inj) 20 mg IV BID [facility] Last Admin: 11/19/20 10:41 Dose: 20 mg Documented by: Heparin Sodium (Porcine) (Heparin 5,000 Unit/1 Ml Vial) 5,000 unit SUB-Q Q8HR [facility] Last Admin: 11/19/20 15:01 Dose: 5,000 unit Documented by: Hydralazine HCl (Hydralazine 20 Mg/1 Ml Inj) 10 mg IV Q6H PRN PRN Reason: htn Piperacillin Sod/Tazobactam Sod (Zosyn/Ns 4.5gm/100ml) 4.5 gm in 100 mls @ 200 mls/hr IV Q8H [facility]; Protocol Last Admin: 11/19/20 15:01 Dose: 200 mls/hr Documented by: Thiamine HCl 100 mg/ Folic Acid 1 mg/ Multivitamins/Minerals 10 ml/ Sodium Chloride 1,011.2 mls @ 250 mls/hr IV DAILY ONE Stop: 11/19/20 23:02 Sodium Chloride (Nacl 0.9% 1000 Ml) 1,000 mls @ 100 mls/hr IV DIRECT [facility] Last Admin: 11/19/20 10:40 Dose: 100 mls/hr Documented by: Lorazepam (Lorazepam 2 Mg/Ml Vial) 2 mg IV Q1HR PRN PRN Reason: CIWA-Ar 8-15 Last Admin: 11/19/20 01:32 Dose: 2 mg Documented by: Lorazepam (Lorazepam 2 Mg/Ml Vial) 4 mg IV Q1HR PRN PRN Reason: CIWA-Ar 16-25 Lorazepam (Lorazepam 2 Mg/Ml Vial) 4 mg IV Q15MIN PRN PRN Reason: CIWA-Ar >25 Morphine Sulfate (Morphine 2 Mg/1 Ml Inj) 2 mg IV Q4H PRN PRN Reason: Pain, Moderate (4-6) Last Admin: 11/19/20 16:07 Dose: 2 mg Documented by: Ondansetron HCl (Ondansetron 4 Mg/2 Ml Inj) 4 mg IV Q8H PRN PRN Reason: Nausea And Vomiting Last Admin: 11/18/20 22:30 Dose: 4 mg Documented by: Potassium Chloride (Potassium Chloride Er 20 Meq Tab) 40 meq PO ONCE [facility] Stop: 11/19/20 23:46 Sodium Chloride (Sodium Chloride 0.9% 10 Ml Flush Syringe) 10 ml IV BID [facility] Last Admin: 11/19/20 10:56 Dose: Not Given Documented by: Sodium Chloride (Sodium Chloride 0.9% 10 Ml Flush Syringe) 10 ml IV PRN PRN PRN Reason: LINE FLUSH Review of Systems All systems: negative (none) Exam Vital Signs Pulse Resp BP 115 H 22 112/57 11/18/20 12:34 11/18/20 12:34 11/18/20 12:34 - General physical appearance Positive: well developed, well nourished, no distress - Eyes Positive: PERRL, normal occular movement - ENT Positive: normal pinna, normal nares, normal mucosa, no hearing loss, no congestion - Neck Positive: no masses, no bruits, trachea midline, no venous distension - Respiratory Positive: normal expansion, normal respiratory effort, clear to auscultation - Cardiovascular Rhythm: regular Heart Sounds: Present: S1 & S2. Absent: rub, click - Extremities Extremities: no ischemia, pulses symmetrical, No edema - Breasts Breasts: normal, no mass, no skin changes - Abdomen Abdomen: Present: soft, bowel sounds normal. Absent: tender, distended Hernia: none - Genitourinary Male Genitourinary: normal Female Genitourinary: normal - Integumentary no rash, no growths, no abnormal pigmentation - Neurologic Neurologic: alert and oriented to time, place and person, motor strength and sensation are grossly intact - Musculoskeletal normal gait, normal posture - Psychiatric Psychiatric: appropriate mood/affect, intact judgment & insight Results - Labs 11/19/20 04:35 11/19/20 04:35 Abnormal lab results 11/18/20 11/19/20 11/19/20 Range/Units 13:23 04:35 04:35 RBC 2.40 L (3.65-5.03) M/mm3 Hgb 7.5 L (10.1-14.3) gm/dl Hct 22.7 L (30.3-42.9) % RDW 29.4 H (13.2-15.2) % Plt Count 99 L (140-440) K/mm3 Seg Neuts % (Manual) 77.0 H (40.0-70.0) % Lymphocytes % (Manual) 37.0 H (13.4-35.0) % Nucleated RBC % 3.0 H (0.0-0.9) % Lymphocytes # (Manual) 0.9 L (1.2-5.4) K/mm3 Sodium 131 L (137-145) mmol/L Potassium 3.1 L (3.6-5.0) mmol/L Chloride 91.9 L (98-107) mmol/L Carbon Dioxide 31 H (22-30) mmol/L Creatinine 0.2 L (0.6-1.2) mg/dL Calcium 7.3 L (8.4-10.2) mg/dL Magnesium (1.7-2.3) mg/dL 11/19/20 Range/Units 13:07 RBC (3.65-5.03) M/mm3 Hgb (10.1-14.3) gm/dl Hct (30.3-42.9) % RDW (13.2-15.2) % Plt Count (140-440) K/mm3 Seg Neuts % (Manual) (40.0-70.0) % Lymphocytes % (Manual) (13.4-35.0) % Nucleated RBC % (0.0-0.9) % Lymphocytes # (Manual) (1.2-5.4) K/mm3 Sodium (137-145) mmol/L Potassium (3.6-5.0) mmol/L Chloride (98-107) mmol/L Carbon Dioxide (22-30) mmol/L Creatinine (0.6-1.2) mg/dL Calcium (8.4-10.2) mg/dL Magnesium 1.40 L (1.7-2.3) mg/dL Diabetes panel 11/19/20 Range/Units 04:35 Sodium 131 L (137-145) mmol/L Potassium 3.1 L (3.6-5.0) mmol/L Chloride 91.9 L (98-107) mmol/L Carbon Dioxide 31 H (22-30) mmol/L BUN 9 (7-17) mg/dL Creatinine 0.2 L (0.6-1.2) mg/dL Glucose 77 (65-100) mg/dL Calcium 7.3 L (8.4-10.2) mg/dL Calcium panel 11/19/20 Range/Units 04:35 Calcium 7.3 L (8.4-10.2) mg/dL Pituitary panel 11/19/20 Range/Units 04:35 Sodium 131 L (137-145) mmol/L Potassium 3.1 L (3.6-5.0) mmol/L Chloride 91.9 L (98-107) mmol/L Carbon Dioxide 31 H (22-30) mmol/L BUN 9 (7-17) mg/dL Creatinine 0.2 L (0.6-1.2) mg/dL Glucose 77 (65-100) mg/dL Calcium 7.3 L (8.4-10.2) mg/dL Adrenal panel 11/19/20 Range/Units 04:35 Sodium 131 L (137-145) mmol/L Potassium 3.1 L (3.6-5.0) mmol/L Chloride 91.9 L (98-107) mmol/L Carbon Dioxide 31 H (22-30) mmol/L BUN 9 (7-17) mg/dL Creatinine 0.2 L (0.6-1.2) mg/dL Glucose 77 (65-100) mg/dL Calcium 7.3 L (8.4-10.2) mg/dL - Imaging CT scan - abdomen: report reviewed CT scan - pelvis: report reviewed Assessment and Plan - Patient Problems (1) Abdominal pain Current Visit: Yes Status: Acute Qualifiers: Abdominal location: generalized Qualified Code(s): R10.84 - Generalized abdominal pain Plan to address problem: 1) Pt is improved. She has no current signs or symptoms of appendicitis. 2) CLD 3) CBC in the am
[2020-11-19] MEDS ORDERED: THIAMINE 100 MG, FOLIC ACID 1 MG, MULTIPLE VITAMIN INJ, ADULT 10 ML in SODIUM CHLORIDE ... IV ONE (19:00)
[2020-11-19] MEDS: ONDANSETRON 4 MG/2 ML INJ IV PRN (20:20)
[2020-11-20] MEDS: LORazepam 2 MG/ML VIAL IV PRN ×4 (00:59→21:03)
[2020-11-20 04:43] LABS: Hematocrit 21.6 % (30.3-42.9); Hemoglobin 7.3 gm/dl (10.1-14.3); Mean Corpuscular HGB Conc 34 % (30-34); Mean Corpuscular Volume 95 fl (79-97); Platelet Count 107 K/mm3 (140-440); Red Blood Count 2.28 M/mm3 (3.65-5.03)
[2020-11-20 04:45] LABS: Red Cell Distribution Width 29.8 % (13.2-15.2)
[2020-11-20 05:01] LABS: Blood Urea Nitrogen 4 mg/dL (7-17); Calcium 8.2 mg/dL (8.4-10.2); Hemolysis Index 0
[2020-11-20 05:19] LABS: BUN/Creatinine Ratio 13
[2020-11-20] MEDS: MORPHINE 2 MG/1 ML INJ IV PRN ×5 (05:54→22:57)
[2020-11-20 06:17] LABS: Total Cells Counted 100
[2020-11-20 06:18] LABS: Anisocytosis 1+
[2020-11-20] MEDS: PIPERACIL/TAZOBACTA 4.5/NS 100 4.5 GM/100 ML VIAL IV SCH ×3 (06:19→21:02)
[2020-11-20] MEDS: HEPARIN 5,000 UNIT/1 ML VIAL SUB-Q SCH ×3 (06:19→22:48)
[2020-11-20 06:21] LABS: Hypochromasia 1+; Platelet Estimate Consistent w Auto; Target Cells 1+
--- NOTE | 2020-11-20 08:37 | Progress Note ---
Assessment and Plan Assessment and plan: --Hypokalemia; potassium 3.3 today Current Visit: Yes Status: Acute Replenish with 40 mEq oral KCl Follow electrolytes Follow magnesium levels --Hypomagnesemia; magnesium is 1.4 today Current Visit: Yes Status: Acute. Replenished with 4 g of mag self IV Closely monitor electrolytes --Hyponatremia; Current Visit: Yes Status: Acute. IV normal saline monitor electrolytes sodium levels improved from 131-135 Closely monitor electrolytes --Possible acute appendicitis Current Visit: Yes Status: Acute Surgery evaluation noted and appreciated Patient symptoms improved, surgeon started on clear liquids We will closely monitor --Possible colitis ascending colon Current Visit: Yes Status: Acute Symptoms improved, clear liquids Advance as tolerated --Anemia; Current Visit: Yes Status: Acute. Hb droppedfrom 9-7.5-7.3 Closely monitor H&H and transfuse as needed Check stool for occult blood --Moderate malnutrition/hypoalbuminemia Current Visit: Yes Status: Acute. Albumin 3.0, nutrition supplements Supportive care, nutrition consult if needed --History of chronic alcohol abuse Current Visit: Yes Status: Acute Strongly advised to quit alcohol intake, monitor for any alcohol withdrawal symptoms Initiate CIWA protocol if needed, thiamine folic acid multivitamin, IV fluids with banana bag --Abnormal LFTs/alcohol hepatitis Current Visit: Yes Status: Acute Treat the underlying cause advised to quit alcohol intake Closely monitor LFTs, GI evaluation if needed --History of fall/probably alcohol related Current Visit: Yes Status: Acute Patient is on fall precaution. PT OT evaluation and recommendations -- Knee contusion secondary to fall Current Visit: Yes Status: Acute Supportive care, pain medications, closely monitor --Possible urinary tract infection Current Visit: Yes Status: Acute Zosyn 4.5 g IV every every 8 hours Follow cultures, plenty of oral, IV fluids. --GERD; Current Visit: Yes Status: Acute IV Protonix --DVT prophylaxis Current Visit: Yes Status: Acute Heparin 5000 units subcu every 8 hours for DVT prophylaxis. Closely monitor the patient and adjust management as needed Plan of care reviewed with the patient and her nurse Follow surgery evaluation recommendations 11/20/2020; patient symptoms significantly improved Surgery evaluation noted and appreciated, started on clear liquids Continue CIWA protocol History Interval history: I have seen and examined the patient at the bedside this morning Patient's chart and medications reviewed surgery evaluation noted and appreciated Started on clear liquids Patient feels slightly better, patient has mild tremulousness On CIWA protocol vital signs noted Hospitalist Physical - Constitutional Vitals: Temp Pulse Resp BP Pulse Ox 98.1 F 85 18 102/63 100 11/20/20 05:45 11/20/20 05:45 11/20/20 05:45 11/20/20 05:45 11/20/20 05:45 General appearance: Present: no acute distress, well-nourished, other (Mild nicolás mulousness) - EENT Eyes: Present: PERRL, EOM intact - Neck Neck: Present: supple, normal ROM - Respiratory Respiratory effort: normal Respiratory: bilateral: diminished, negative: rales, rhonchi, wheezing - Cardiovascular Rhythm: regular Heart Sounds: Present: S1 & S2 - Extremities Extremities: no ischemia, No edema - Abdominal General gastrointestinal: soft, non-tender, non-distended, normal bowel sounds - Integumentary Integumentary: Present: clear, warm - Psychiatric Psychiatric: appropriate mood/affect, cooperative - Neurologic Neurologic: CNII-XII intact, moves all extremities Results - Labs CBC & Chem 7: 11/20/20 04:26 11/20/20 04:26 Labs: Laboratory Last Values WBC 4.2 K/mm3 (4.5-11.0) L 11/20/20 04:26 RBC 2.28 M/mm3 (3.65-5.03) L 11/20/20 04:26 Hgb 7.3 gm/dl (10.1-14.3) L 11/20/20 04:26 Hct 21.6 % (30.3-42.9) L 11/20/20 04:26 MCV 95 fl (79-97) 11/20/20 04:26 MCH 32 pg (28-32) 11/20/20 04:26 MCHC 34 % (30-34) 11/20/20 04:26 RDW 29.8 % (13.2-15.2) H 11/20/20 04:26 Plt Count 107 K/mm3 (140-440) L 11/20/20 04:26 Add Manual Diff Complete 11/20/20 04:26 Total Counted 100 11/20/20 04:26 Seg Neuts % (Manual) 73.0 % (40.0-70.0) H 11/20/20 04:26 Band Neutrophils % 4.0 % 11/18/20 13:23 Lymphocytes % (Manual) 25.0 % (13.4-35.0) 11/20/20 04:26 Monocytes % (Manual) 2.0 % (0.0-7.3) 11/20/20 04:26 Eosinophils % (Manual) 2.0 % (0.0-4.3) 11/19/20 04:35 Nucleated RBC % Not Reportable 11/20/20 04:26 Seg Neutrophils # Man 3.1 K/mm3 (1.8-7.7) 11/20/20 04:26 Band Neutrophils # 0.0 K/mm3 11/20/20 04:26 Lymphocytes # (Manual) 1.1 K/mm3 (1.2-5.4) L 11/20/20 04:26 Abs React Lymphs (Man) 0.0 K/mm3 11/20/20 04:26 Monocytes # (Manual) 0.1 K/mm3 (0.0-0.8) 11/20/20 04:26 Eosinophils # (Manual) 0.0 K/mm3 (0.0-0.4) 11/20/20 04:26 Basophils # (Manual) 0.0 K/mm3 (0.0-0.1) 11/20/20 04:26 Metamyelocytes # 0.0 K/mm3 11/20/20 04:26 Myelocytes # 0.0 K/mm3 11/20/20 04:26 Promyelocytes # 0.0 K/mm3 11/20/20 04:26 Blast Cells # 0.0 K/mm3 11/20/20 04:26 WBC Morphology Not Reportable 11/20/20 04:26 Hypersegmented Neuts Not Reportable 11/20/20 04:26 Hyposegmented Neuts Not Reportable 11/20/20 04:26 Hypogranular Neuts Not Reportable 11/20/20 04:26 Smudge Cells Not Reportable 11/20/20 04:26 Toxic Granulation Not Reportable 11/20/20 04:26 Toxic Vacuolation Not Reportable 11/20/20 04:26 Dohle Bodies Not Reportable 11/20/20 04:26 Pelger-Huet Anomaly Not Reportable 11/20/20 04:26 Stefani Rods Not Reportable 11/20/20 04:26 Platelet Estimate Consistent w auto 11/20/20 04:26 Clumped Platelets Not Reportable 11/20/20 04:26 Plt Clumps, EDTA Not Reportable 11/20/20 04:26 Large Platelets Not Reportable 11/20/20 04:26 Giant Platelets Not Reportable 11/20/20 04:26 Platelet Satelliting Not Reportable 11/20/20 04:26 Plt Morphology Comment Not Reportable 11/20/20 04:26 RBC Morphology Not Reportable 11/20/20 04:26 Dimorphic RBCs Not Reportable 11/20/20 04:26 Polychromasia Not Reportable 11/20/20 04:26 Hypochromasia 1+ 11/20/20 04:26 Poikilocytosis Not Reportable 11/20/20 04:26 Anisocytosis 1+ 11/20/20 04:26 Microcytosis Not Reportable 11/20/20 04:26 Macrocytosis Not Reportable 11/20/20 04:26 Spherocytes Not Reportable 11/20/20 04:26 Pappenheimer Bodies Not Reportable 11/20/20 04:26 Sickle Cells Not Reportable 11/20/20 04:26 Target Cells 1+ 11/20/20 04:26 Tear Drop Cells Not Reportable 11/20/20 04:26 Ovalocytes Not Reportable 11/20/20 04:26 Helmet Cells Not Reportable 11/20/20 04:26 [place] Bodies Not Reportable 11/20/20 04:26 [place] Rings Not Reportable 11/20/20 04:26 Coy Cells Not Reportable 11/20/20 04:26 Bite Cells Not Reportable 11/20/20 04:26 Crenated Cell Not Reportable 11/20/20 04:26 Elliptocytes Not Reportable 11/20/20 04:26 Acanthocytes (Spur) Not Reportable 11/20/20 04:26 Rouleaux Not Reportable 11/20/20 04:26 Hemoglobin C Crystals Not Reportable 11/20/20 04:26 Schistocytes Not Reportable 11/20/20 04:26 Malaria parasites Not Reportable 11/20/20 04:26 Artemio Bodies Not Reportable 11/20/20 04:26 Hem Pathologist Commnt No 11/20/20 04:26 Sodium 135 mmol/L (137-145) L 11/20/20 04:26 Potassium 3.3 mmol/L (3.6-5.0) L 11/20/20 04:26 Chloride 96.4 mmol/L (98-107) L 11/20/20 04:26 Carbon Dioxide 31 mmol/L (22-30) H 11/20/20 04:26 Anion Gap 11 mmol/L 11/20/20 04:26 BUN 4 mg/dL (7-17) L 11/20/20 04:26 Creatinine 0.3 mg/dL (0.6-1.2) L 11/20/20 04:26 Estimated GFR > 60 ml/min 11/20/20 04:26 BUN/Creatinine Ratio 13 % 11/20/20 04:26 Glucose 60 mg/dL (65-100) L 11/20/20 04:26 Calcium 8.2 mg/dL (8.4-10.2) L 11/20/20 04:26 Magnesium 1.40 mg/dL (1.7-2.3) L 11/20/20 04:26 Total Bilirubin 8.60 mg/dL (0.1-1.2) H 11/18/20 13:23 AST 95 units/L (5-40) H 11/18/20 13:23 ALT 41 units/L (7-56) 11/18/20 13:23 Alkaline Phosphatase 233 units/L (35-129) H 11/18/20 13:23 Total Protein 6.3 g/dL (6.3-8.2) 11/18/20 13:23 Albumin 3.1 g/dL (3.9-5) L 11/18/20 13:23 Albumin/Globulin Ratio 1.0 % 11/18/20 13:23 Lipase 64 units/L (13-60) H 11/18/20 13:23 HCG, Quant < 2 mIU/mL (0-4) 11/18/20 13:23 Urine Color Bri (Yellow) 11/18/20 14:27 Urine Turbidity Clear (Clear) 11/18/20 14:27 Urine pH 5.0 (5.0-7.0) 11/18/20 14:27 Ur Specific [place] 1.035 (1.003-1.030) H 11/18/20 14:27 Urine Protein <15 mg/dl mg/dL (Negative) 11/18/20 14:27 Urine Glucose (UA) Negative mg/dL (Negative) 11/18/20 14:27 Urine Ketones Negative mg/dL (Negative) 11/18/20 14:27 Urine Blood Small (Negative) A 11/18/20 14:27 Urine Nitrite Negative (Negative) 11/18/20 14:27 Ur Reducing Substances Not Reportable 11/18/20 14:27 Urine Bilirubin Moderate (Negative) 11/18/20 14:27 Urine Ictotest Not Reportable 11/18/20 14:27 Urine Urobilinogen < 2.0 mg/dL (<2.0) 11/18/20 14:27 Ur Leukocyte Esterase Small (Negative) 11/18/20 14:27 Urine WBC (Auto) 43.0 /HPF (0.0-6.0) H 11/18/20 14:27 Urine RBC (Auto) 10.0 /HPF (0.0-6.0) 11/18/20 14:27 U Epithel Cells (Auto) 7.0 /HPF (0-13.0) 11/18/20 14:27 Urine Mucus 3+ /HPF 11/18/20 14:27 Urine Opiates Screen Negative 11/18/20 14:27 Urine Methadone Screen Negative 11/18/20 14:27 Ur Barbiturates Screen Negative 11/18/20 14:27 Ur Phencyclidine Scrn Negative 11/18/20 14:27 Ur Amphetamines Screen Negative 11/18/20 14:27 U Benzodiazepines Scrn Negative 11/18/20 14:27 Urine Cocaine Screen Negative 11/18/20 14:27 U Marijuana (THC) Screen Negative 11/18/20 14:27 Drugs of Abuse Note Disclamer 11/18/20 14:27 Mckeon/IV: Voiding Method External Female Catheter Active Medications - Current Medications Current Medications: Generic Name Dose Route Start Last Admin Trade Name Freq PRN Reason Stop Dose Admin Acetaminophen 650 mg 11/18/20 21:43 Acetaminophen 325 Mg Tab PO Q4H PRN Pain MILD(1-3)/Fever >100.5/SWIFT Albuterol 2.5 mg 11/18/20 21:43 Albuterol 2.5 Mg/3 Ml Nebu IH Q4HRT PRN Shortness Of Breath Famotidine 20 mg 11/18/20 22:00 11/19/20 21:54 Famotidine 20 Mg/2 Ml Inj IV 20 mg BID [facility] Administration Heparin Sodium (Porcine) 5,000 unit 11/18/20 22:00 11/20/20 06:19 Heparin 5,000 Unit/1 Ml Vial SUB-Q 5,000 unit Q8HR [facility] Administration Hydralazine HCl 10 mg 11/18/20 21:44 Hydralazine 20 Mg/1 Ml Inj IV Q6H PRN htn Piperacillin Sod/Tazobactam Sod 4.5 gm in 100 mls @ 200 mls/hr 11/19/20 06:00 11/20/20 07:32 Zosyn/Ns 4.5gm/100ml IV Infused Q8H [facility] Infusion Protocol Sodium Chloride 1,000 mls @ 100 mls/hr 11/19/20 09:00 11/19/20 21:52 Nacl 0.9% 1000 Ml IV Infused DIRECT [facility] Infusion Magnesium Sulfate 4 gm in 100 mls @ 25 mls/hr 11/20/20 08:33 Magnesium Sulfate 4gm/100ml IV 11/20/20 12:32 ONCE ONE Lorazepam 2 mg 11/18/20 20:12 11/20/20 06:20 Lorazepam 2 Mg/Ml Vial IV 2 mg Q1HR PRN Administration CIWA-Ar 8-15 Lorazepam 4 mg 11/18/20 20:12 Lorazepam 2 Mg/Ml Vial IV Q1HR PRN CIWA-Ar 16-25 Lorazepam 4 mg 11/18/20 20:12 Lorazepam 2 Mg/Ml Vial IV Q15MIN PRN CIWA-Ar >25 Morphine Sulfate 2 mg 11/18/20 21:43 11/20/20 05:54 Morphine 2 Mg/1 Ml Inj IV 2 mg Q4H PRN Administration Pain, Moderate (4-6) Ondansetron HCl 4 mg 11/18/20 21:43 11/19/20 20:20 Ondansetron 4 Mg/2 Ml Inj IV 4 mg Q8H PRN Administration Nausea And Vomiting Potassium Chloride 40 meq 11/20/20 08:32 Potassium Chloride Er 20 Meq Tab PO 11/20/20 08:33 ONCE ONE Sodium Chloride 10 ml 11/18/20 22:00 11/19/20 22:00 Sodium Chloride 0.9% 10 Ml Flush Syringe IV 10 ml BID [facility] Administration Sodium Chloride 10 ml 11/18/20 21:43 Sodium Chloride 0.9% 10 Ml Flush Syringe IV PRN PRN LINE FLUSH
[2020-11-20] MEDS ORDERED: POTASSIUM CHLORIDE ER 20 MEQ TAB PO SCH (09:00)
[2020-11-20] MEDS ORDERED: POTASSIUM CHLORIDE 20 MEQ PACKET PO SCH (09:30)
[2020-11-20] MEDS ORDERED: MAGNESIUM SULFATE 4 GM/100 ML BAG IV ONE (09:30)
[2020-11-20] MEDS: FAMOTIDINE 20 MG/2 ML INJ IV SCH ×2 (09:37→21:05)
[2020-11-20] MEDS: SODIUM CHLORIDE 0.9% 1000 ML 1,000 ML IV SCH ×2 (09:37→09:55)
--- NOTE | 2020-11-20 19:21 | Progress Note ---
Assessment and Plan - Patient Problems (1) Abdominal pain Current Visit: Yes Status: Acute Qualifiers: Abdominal location: generalized Qualified Code(s): R10.84 - Generalized abdominal pain Plan to address problem: 1) Hida scan tomorrow Subjective Date of service: 11/20/20 Patient Reports: Positive: no new complaints, pain is less, tolerating liquids well, flatus, no bowel movement Objective Vital Signs - 12hr 11/20/20 11/20/20 11/20/20 12:38 12:42 17:46 Temperature 98.2 F 97.9 F Pulse Rate 78 81 Respiratory 20 18 18 Rate Blood Pressure 141/60 119/83 [112/57] O2 Sat by Pulse 100 96 Oximetry - Abdomen soft, bowel sounds normal (Minimal RUQ tenderness without rebound or guarding.) - Labs 11/20/20 04:26 11/20/20 04:26 Diabetes panel 11/20/20 Range/Units 04:26 Sodium 135 L (137-145) mmol/L Potassium 3.3 L (3.6-5.0) mmol/L Chloride 96.4 L (98-107) mmol/L Carbon Dioxide 31 H (22-30) mmol/L BUN 4 L (7-17) mg/dL Creatinine 0.3 L (0.6-1.2) mg/dL Glucose 60 L (65-100) mg/dL Calcium 8.2 L (8.4-10.2) mg/dL Calcium panel 11/20/20 Range/Units 04:26 Calcium 8.2 L (8.4-10.2) mg/dL Pituitary panel 11/20/20 Range/Units 04:26 Sodium 135 L (137-145) mmol/L Potassium 3.3 L (3.6-5.0) mmol/L Chloride 96.4 L (98-107) mmol/L Carbon Dioxide 31 H (22-30) mmol/L BUN 4 L (7-17) mg/dL Creatinine 0.3 L (0.6-1.2) mg/dL Glucose 60 L (65-100) mg/dL Calcium 8.2 L (8.4-10.2) mg/dL Adrenal panel 11/20/20 Range/Units 04:26 Sodium 135 L (137-145) mmol/L Potassium 3.3 L (3.6-5.0) mmol/L Chloride 96.4 L (98-107) mmol/L Carbon Dioxide 31 H (22-30) mmol/L BUN 4 L (7-17) mg/dL Creatinine 0.3 L (0.6-1.2) mg/dL Glucose 60 L (65-100) mg/dL Calcium 8.2 L (8.4-10.2) mg/dL - Imaging CT scan - abdomen: report reviewed CT scan - pelvis: report reviewed
[2020-11-20] MEDS: ONDANSETRON 4 MG/2 ML INJ IV PRN (21:06)
[2020-11-21] MEDS: MORPHINE 2 MG/1 ML INJ IV PRN ×3 (02:36→22:04)
[2020-11-21 04:47] LABS: Hemoglobin 7.5 gm/dl (10.1-14.3)
[2020-11-21 05:12] LABS: Blood Urea Nitrogen 3 mg/dL (7-17); Hemolysis Index 0
[2020-11-21 05:13] LABS: BUN/Creatinine Ratio 10
[2020-11-21] MEDS: PIPERACIL/TAZOBACTA 4.5/NS 100 4.5 GM/100 ML VIAL IV SCH ×3 (05:48→21:55)
[2020-11-21] MEDS: HEPARIN 5,000 UNIT/1 ML VIAL SUB-Q SCH ×3 (08:19→21:56)
--- NOTE | 2020-11-21 09:49 | Progress Note ---
Assessment and Plan - Patient Problems (1) Abdominal pain Current Visit: Yes Status: Acute Qualifiers: Abdominal location: generalized Qualified Code(s): R10.84 - Generalized abdominal pain Plan to address problem: 1) Check Hida scan Subjective Date of service: 11/21/20 Patient Reports: Positive: no new complaints, pain is less Objective Vital Signs - 12hr 11/20/20 11/21/20 11/21/20 22:21 00:00 05:33 Temperature 98.1 F 97.5 F L Pulse Rate 82 87 Respiratory 18 18 18 Rate Blood Pressure 102/62 115/79 O2 Sat by Pulse 100 98 Oximetry 11/21/20 07:40 Temperature 97.6 F Pulse Rate 88 Respiratory 18 Rate Blood Pressure 104/57 O2 Sat by Pulse 96 Oximetry - Abdomen soft, bowel sounds normal (NT, ND) - Labs 11/21/20 04:25 11/21/20 04:25 Diabetes panel 11/21/20 Range/Units 04:25 Sodium 138 (137-145) mmol/L Potassium 3.8 (3.6-5.0) mmol/L Chloride 100.7 (98-107) mmol/L Carbon Dioxide 29 (22-30) mmol/L BUN 3 L (7-17) mg/dL Creatinine 0.3 L (0.6-1.2) mg/dL Glucose 70 (65-100) mg/dL Calcium 8.0 L (8.4-10.2) mg/dL Calcium panel 11/21/20 Range/Units 04:25 Calcium 8.0 L (8.4-10.2) mg/dL Phosphorus 0.60 L* (2.5-4.5) mg/dL Pituitary panel 11/21/20 Range/Units 04:25 Sodium 138 (137-145) mmol/L Potassium 3.8 (3.6-5.0) mmol/L Chloride 100.7 (98-107) mmol/L Carbon Dioxide 29 (22-30) mmol/L BUN 3 L (7-17) mg/dL Creatinine 0.3 L (0.6-1.2) mg/dL Glucose 70 (65-100) mg/dL Calcium 8.0 L (8.4-10.2) mg/dL Adrenal panel 11/21/20 Range/Units 04:25 Sodium 138 (137-145) mmol/L Potassium 3.8 (3.6-5.0) mmol/L Chloride 100.7 (98-107) mmol/L Carbon Dioxide 29 (22-30) mmol/L BUN 3 L (7-17) mg/dL Creatinine 0.3 L (0.6-1.2) mg/dL Glucose 70 (65-100) mg/dL Calcium 8.0 L (8.4-10.2) mg/dL
--- NOTE | 2020-11-21 10:10 | Progress Note ---
Assessment and Plan Assessment and plan: --Hypophosphatemia; IV K-Phos x 1 Maintenance oral Phosnak Dose monitor electrolytes --Hypokalemia; Current Visit: Yes Status: Acute Potassium levels within normal limits today Closely monitor --Hypomagnesemia; Current Visit: Yes Status: Acute. Replenished with 4 g of mag yesterday Magnesium levels normal today --Hyponatremia; Current Visit: Yes Status: Acute. Sodium level significantly improved IV normal saline monitor electrolytes Closely monitor electrolytes --Possible acute appendicitis Current Visit: Yes Status: Acute Surgery evaluation noted and appreciated Patient symptoms improved, surgeon started on clear liquids We will closely monitor --Possible colitis ascending colon Current Visit: Yes Status: Acute Symptoms improved, clear liquids Advance as tolerated Surgery evaluation noted and appreciated Recommend HIDA scan, follow the study --Anemia; Current Visit: Yes Status: Acute. Hb droppedfrom 9-7.5-7.3 Closely monitor H&H and transfuse as needed Check stool for occult blood --Moderate malnutrition/hypoalbuminemia Current Visit: Yes Status: Acute. Albumin 3.0, nutrition supplements Supportive care, nutrition consult if needed --History of chronic alcohol abuse Current Visit: Yes Status: Acute Strongly advised to quit alcohol intake, monitor for any alcohol withdrawal symptoms Initiate CIWA protocol if needed, thiamine folic acid multivitamin, IV fluids with banana bag --Abnormal LFTs/alcohol hepatitis Current Visit: Yes Status: Acute Treat the underlying cause advised to quit alcohol intake Closely monitor LFTs, GI evaluation if needed --History of fall/probably alcohol related Current Visit: Yes Status: Acute Patient is on fall precaution. PT OT evaluation and recommendations -- Knee contusion secondary to fall Current Visit: Yes Status: Acute Supportive care, pain medications, closely monitor --Possible urinary tract infection Current Visit: Yes Status: Acute Zosyn 4.5 g IV every every 8 hours Follow cultures, plenty of oral, IV fluids. --GERD; Current Visit: Yes Status: Acute IV Protonix --DVT prophylaxis Current Visit: Yes Status: Acute Heparin 5000 units subcu every 8 hours for DVT prophylaxis. Closely monitor the patient and adjust management as needed Plan of care reviewed with the patient and her nurse Follow surgery evaluation recommendations 11/20/2020; patient symptoms significantly improved Surgery evaluation noted and appreciated, started on clear liquids Continue CIWA protocol 11/21/2020; patient is scheduled for HIDA scan Multiple electrolyte abnormalities corrected Continue CIWA History Interval history: I have seen and examined the patient at the bedside Patient's chart and medications reviewed HIDA scan reports reviewed Patient feels slightly better Vital signs noted Hospitalist Physical - Constitutional Vitals: Temp Pulse Resp BP Pulse Ox 97.6 F 88 18 104/57 96 11/21/20 07:40 11/21/20 07:40 11/21/20 07:40 11/21/20 07:40 11/21/20 07:40 General appearance: Present: no acute distress, well-nourished, other (Mild tremulousness) - EENT Eyes: Present: PERRL, EOM intact - Neck Neck: Present: supple, normal ROM - Respiratory Respiratory effort: normal Respiratory: bilateral: diminished, negative: rales, rhonchi, wheezing - Cardiovascular Rhythm: regular Heart Sounds: Present: S1 & S2 - Extremities Extremities: no ischemia, No edema - Abdominal General gastrointestinal: soft, non-tender, non-distended - Integumentary Integumentary: Present: clear, warm - Psychiatric Psychiatric: appropriate mood/affect, cooperative - Neurologic Neurologic: CNII-XII intact, moves all extremities Results - Labs CBC & Chem 7: 11/21/20 04:25 11/21/20 04:25 Labs: Laboratory Last Values WBC 4.2 K/mm3 (4.5-11.0) L 11/20/20 04:26 RBC 2.28 M/mm3 (3.65-5.03) L 11/20/20 04:26 Hgb 7.5 gm/dl (10.1-14.3) L 11/21/20 04:25 Hct 23.0 % (30.3-42.9) L 11/21/20 04:25 MCV 95 fl (79-97) 11/20/20 04:26 MCH 32 pg (28-32) 11/20/20 04:26 MCHC 34 % (30-34) 11/20/20 04:26 RDW 29.8 % (13.2-15.2) H 11/20/20 04:26 Plt Count 107 K/mm3 (140-440) L 11/20/20 04:26 Add Manual Diff Complete 11/20/20 04:26 Total Counted 100 11/20/20 04:26 Seg Neuts % (Manual) 73.0 % (40.0-70.0) H 11/20/20 04:26 Band Neutrophils % 4.0 % 11/18/20 13:23 Lymphocytes % (Manual) 25.0 % (13.4-35.0) 11/20/20 04:26 Monocytes % (Manual) 2.0 % (0.0-7.3) 11/20/20 04:26 Eosinophils % (Manual) 2.0 % (0.0-4.3) 11/19/20 04:35 Nucleated RBC % Not Reportable 11/20/20 04:26 Seg Neutrophils # Man 3.1 K/mm3 (1.8-7.7) 11/20/20 04:26 Band Neutrophils # 0.0 K/mm3 11/20/20 04:26 Lymphocytes # (Manual) 1.1 K/mm3 (1.2-5.4) L 11/20/20 04:26 Abs React Lymphs (Man) 0.0 K/mm3 11/20/20 04:26 Monocytes # (Manual) 0.1 K/mm3 (0.0-0.8) 11/20/20 04:26 Eosinophils # (Manual) 0.0 K/mm3 (0.0-0.4) 11/20/20 04:26 Basophils # (Manual) 0.0 K/mm3 (0.0-0.1) 11/20/20 04:26 Metamyelocytes # 0.0 K/mm3 11/20/20 04:26 Myelocytes # 0.0 K/mm3 11/20/20 04:26 Promyelocytes # 0.0 K/mm3 11/20/20 04:26 Blast Cells # 0.0 K/mm3 11/20/20 04:26 WBC Morphology Not Reportable 11/20/20 04:26 Hypersegmented Neuts Not Reportable 11/20/20 04:26 Hyposegmented Neuts Not Reportable 11/20/20 04:26 Hypogranular Neuts Not Reportable 11/20/20 04:26 Smudge Cells Not Reportable 11/20/20 04:26 Toxic Granulation Not Reportable 11/20/20 04:26 Toxic Vacuolation Not Reportable 11/20/20 04:26 Dohle Bodies Not Reportable 11/20/20 04:26 Pelger-Huet Anomaly Not Reportable 11/20/20 04:26 Stefani Rods Not Reportable 11/20/20 04:26 Platelet Estimate Consistent w auto 11/20/20 04:26 Clumped Platelets Not Reportable 11/20/20 04:26 Plt Clumps, EDTA Not Reportable 11/20/20 04:26 Large Platelets Not Reportable 11/20/20 04:26 Giant Platelets Not Reportable 11/20/20 04:26 Platelet Satelliting Not Reportable 11/20/20 04:26 Plt Morphology Comment Not Reportable 11/20/20 04:26 RBC Morphology Not Reportable 11/20/20 04:26 Dimorphic RBCs Not Reportable 11/20/20 04:26 Polychromasia Not Reportable 11/20/20 04:26 Hypochromasia 1+ 11/20/20 04:26 Poikilocytosis Not Reportable 11/20/20 04:26 Anisocytosis 1+ 11/20/20 04:26 Microcytosis Not Reportable 11/20/20 04:26 Macrocytosis Not Reportable 11/20/20 04:26 Spherocytes Not Reportable 11/20/20 04:26 Pappenheimer Bodies Not Reportable 11/20/20 04:26 Sickle Cells Not Reportable 11/20/20 04:26 Target Cells 1+ 11/20/20 04:26 Tear Drop Cells Not Reportable 11/20/20 04:26 Ovalocytes Not Reportable 11/20/20 04:26 Helmet Cells Not Reportable 11/20/20 04:26 Atkinson-Wiscon Bodies Not Reportable 11/20/20 04:26 [place] Rings Not Reportable 11/20/20 04:26 Mikael Cells Not Reportable 11/20/20 04:26 Bite Cells Not Reportable 11/20/20 04:26 Crenated Cell Not Reportable 11/20/20 04:26 Elliptocytes Not Reportable 11/20/20 04:26 Acanthocytes (Spur) Not Reportable 11/20/20 04:26 Rouleaux Not Reportable 11/20/20 04:26 Hemoglobin C Crystals Not Reportable 11/20/20 04:26 Schistocytes Not Reportable 11/20/20 04:26 Malaria parasites Not Reportable 11/20/20 04:26 Artemio Bodies Not Reportable 11/20/20 04:26 Hem Pathologist Commnt No 11/20/20 04:26 Sodium 138 mmol/L (137-145) 11/21/20 04:25 Potassium 3.8 mmol/L (3.6-5.0) 11/21/20 04:25 Chloride 100.7 mmol/L (98-107) 11/21/20 04:25 Carbon Dioxide 29 mmol/L (22-30) 11/21/20 04:25 Anion Gap 12 mmol/L 11/21/20 04:25 BUN 3 mg/dL (7-17) L 11/21/20 04:25 Creatinine 0.3 mg/dL (0.6-1.2) L 11/21/20 04:25 Estimated GFR > 60 ml/min 11/21/20 04:25 BUN/Creatinine Ratio 10 % 11/21/20 04:25 Glucose 70 mg/dL (65-100) 11/21/20 04:25 Calcium 8.0 mg/dL (8.4-10.2) L 11/21/20 04:25 Phosphorus 0.60 mg/dL (2.5-4.5) L* 11/21/20 04:25 Magnesium 1.90 mg/dL (1.7-2.3) 11/21/20 04:25 Total Bilirubin 8.60 mg/dL (0.1-1.2) H 11/18/20 13:23 AST 95 units/L (5-40) H 11/18/20 13:23 ALT 41 units/L (7-56) 11/18/20 13:23 Alkaline Phosphatase 233 units/L (35-129) H 11/18/20 13:23 Total Protein 6.3 g/dL (6.3-8.2) 11/18/20 13:23 Albumin 3.1 g/dL (3.9-5) L 11/18/20 13:23 Albumin/Globulin Ratio 1.0 % 11/18/20 13:23 Lipase 64 units/L (13-60) H 11/18/20 13:23 HCG, Quant < 2 mIU/mL (0-4) 11/18/20 13:23 Urine Color Bri (Yellow) 11/18/20 14:27 Urine Turbidity Clear (Clear) 11/18/20 14:27 Urine pH 5.0 (5.0-7.0) 11/18/20 14:27 Ur Specific [place] 1.035 (1.003-1.030) H 11/18/20 14:27 Urine Protein <15 mg/dl mg/dL (Negative) 11/18/20 14:27 Urine Glucose (UA) Negative mg/dL (Negative) 11/18/20 14:27 Urine Ketones Negative mg/dL (Negative) 11/18/20 14:27 Urine Blood Small (Negative) A 11/18/20 14:27 Urine Nitrite Negative (Negative) 11/18/20 14:27 Ur Reducing Substances Not Reportable 11/18/20 14:27 Urine Bilirubin Moderate (Negative) 11/18/20 14:27 Urine Ictotest Not Reportable 11/18/20 14:27 Urine Urobilinogen < 2.0 mg/dL (<2.0) 11/18/20 14:27 Ur Leukocyte Esterase Small (Negative) 11/18/20 14:27 Urine WBC (Auto) 43.0 /HPF (0.0-6.0) H 11/18/20 14:27 Urine RBC (Auto) 10.0 /HPF (0.0-6.0) 11/18/20 14:27 U Epithel Cells (Auto) 7.0 /HPF (0-13.0) 11/18/20 14:27 Urine Mucus 3+ /HPF 11/18/20 14:27 Urine Opiates Screen Negative 11/18/20 14:27 Urine Methadone Screen Negative 11/18/20 14:27 Ur Barbiturates Screen Negative 11/18/20 14:27 Ur Phencyclidine Scrn Negative 11/18/20 14:27 Ur Amphetamines Screen Negative 11/18/20 14:27 U Benzodiazepines Scrn Negative 11/18/20 14:27 Urine Cocaine Screen Negative 11/18/20 14:27 U Marijuana (THC) Screen Negative 11/18/20 14:27 Drugs of Abuse Note Disclamer 11/18/20 14:27 Mckeon/IV: Voiding Method External Female Catheter Active Medications - Current Medications Current Medications: Generic Name Dose Route Start Last Admin Trade Name Freq PRN Reason Stop Dose Admin Acetaminophen 650 mg 11/18/20 21:43 Acetaminophen 325 Mg Tab PO Q4H PRN Pain MILD(1-3)/Fever >100.5/SWIFT Albuterol 2.5 mg 11/18/20 21:43 Albuterol 2.5 Mg/3 Ml Nebu IH Q4HRT PRN Shortness Of Breath Famotidine 20 mg 11/18/20 22:00 11/20/20 21:05 Famotidine 20 Mg/2 Ml Inj IV 20 mg BID OUMAR Administration Heparin Sodium (Porcine) 5,000 unit 11/18/20 22:00 11/21/20 08:19 Heparin 5,000 Unit/1 Ml Vial SUB-Q 5,000 unit Q8HR OUMAR Administration Hydralazine HCl 10 mg 11/18/20 21:44 Hydralazine 20 Mg/1 Ml Inj IV Q6H PRN htn Piperacillin Sod/Tazobactam Sod 4.5 gm in 100 mls @ 200 mls/hr 11/19/20 06:00 11/21/20 08:17 Zosyn/Ns 4.5gm/100ml IV Infused Q8H OUMAR Infusion Protocol Sodium Chloride 1,000 mls @ 100 mls/hr 11/19/20 09:00 11/21/20 05:10 Nacl 0.9% 1000 Ml IV Infused DIRECT OUMAR Infusion Potassium Phosphate 40 mmol/ 513.3333 mls @ 83 mls/hr 11/21/20 10:01 Sodium Chloride IV 11/21/20 16:12 ONCE ONE Lorazepam 2 mg 11/18/20 20:12 11/20/20 21:03 Lorazepam 2 Mg/Ml Vial IV 2 mg Q1HR PRN Administration CIWA-Ar 8-15 Lorazepam 4 mg 11/18/20 20:12 Lorazepam 2 Mg/Ml Vial IV Q1HR PRN CIWA-Ar 16-25 Lorazepam 4 mg 11/18/20 20:12 Lorazepam 2 Mg/Ml Vial IV Q15MIN PRN CIWA-Ar >25 Morphine Sulfate 2 mg 11/18/20 21:43 11/21/20 02:36 Morphine 2 Mg/1 Ml Inj IV 2 mg Q4H PRN Administration Pain, Moderate (4-6) Ondansetron HCl 4 mg 11/18/20 21:43 11/20/20 21:06 Ondansetron 4 Mg/2 Ml Inj IV 4 mg Q8H PRN Administration Nausea And Vomiting Potassium Phos/Sodium Phos 1 each 11/21/20 10:00 Phos-Nak Powder Packet PO 11/21/20 22:01 Q12HR OUMAR Sodium Chloride 10 ml 11/18/20 22:00 11/20/20 21:05 Sodium Chloride 0.9% 10 Ml Flush Syringe IV 10 ml BID OUMAR Administration Sodium Chloride 10 ml 11/18/20 21:43 Sodium Chloride 0.9% 10 Ml Flush Syringe IV PRN PRN LINE FLUSH
[2020-11-21] MEDS ORDERED: POTASSIUM PHOSPHATE 40 MMOL in SODIUM CHLORIDE 0.9% 500 ML 500 ML IV ONE (11:00)
[2020-11-21] MEDS: PHOS-NAK POWDER PACKET PO SCH ×2 (13:44→21:56)
[2020-11-21] MEDS: FAMOTIDINE 20 MG/2 ML INJ IV SCH ×2 (13:44→21:55)
--- NOTE | 2020-11-21 14:21 | Nuclear Medicine Report ---
NUCLEAR MEDICINE HEPATOBILIARY SCAN INDICATION / CLINICAL INFORMATION: RUQ pain. TECHNIQUE: Radiotracer: Tc-99m mebrofenin (by IV): 5.1 mCi. Gallbladder Stimulant: None used. Not available in pharmacy due to backorder COMPARISON: CT abdomen 11/18/2020 FINDINGS: HEPATIC ACTIVITY: Normal. BILIARY ACTIVITY: Normal. Common bile duct activity at 15 minutes. GALLBLADDER ACTIVITY: Normal at 20 minutes. SMALL BOWEL ACTIVITY: Normal at 15 minutes. IMPRESSION: 1. Biliary obstruction: None. 2. Gallbladder ejection fraction: Not calculated. Signer Name: Jose Ames MD Signed: 11/21/2020 2:16 PM Workstation Name: [id number]
[2020-11-22] MEDS: LORazepam 2 MG/ML VIAL IV PRN (00:02)
[2020-11-22] MEDS: MORPHINE 2 MG/1 ML INJ IV PRN (05:31)
[2020-11-22] MEDS: PIPERACIL/TAZOBACTA 4.5/NS 100 4.5 GM/100 ML VIAL IV SCH ×3 (05:32→22:31)
[2020-11-22] MEDS: HEPARIN 5,000 UNIT/1 ML VIAL SUB-Q SCH ×3 (05:33→22:24)
[2020-11-22] MEDS: SODIUM CHLORIDE 0.9% 1000 ML 1,000 ML IV SCH (05:39)
--- NOTE | 2020-11-22 08:25 | Progress Note ---
Assessment and Plan - Patient Problems (1) Abdominal pain Current Visit: Yes Status: Acute Qualifiers: Abdominal location: generalized Qualified Code(s): R10.84 - Generalized abdominal pain Plan to address problem: 1) Improved. Can be discharged from my perspective. F/u with PCP. Regular d iet. No Rx. Subjective Date of service: 11/22/20 Patient Reports: Positive: no new complaints Objective Vital Signs - 12hr 11/22/20 11/22/20 11/22/20 01:00 04:28 05:09 Temperature 98.6 F 98.3 F 98.3 F Pulse Rate 103 H 97 H 95 H Respiratory 16 16 16 Rate Blood Pressure 97/46 Blood Pressure 113/52 97/46 [112/57] O2 Sat by Pulse 98 98 96 Oximetry 11/22/20 08:04 Temperature 98.6 F Pulse Rate 94 H Respiratory 16 Rate Blood Pressure 104/47 Blood Pressure [112/57] O2 Sat by Pulse 97 Oximetry - Abdomen soft, bowel sounds normal (Essentially NT.) - Labs 11/21/20 04:25 11/21/20 04:25
[2020-11-22] MEDS ORDERED: KETOROLAC 10 MG TAB PO PRN (11:00)
[2020-11-22 11:41] LABS: Blood Urea Nitrogen 3 mg/dL (7-17); Calcium 8.2 mg/dL (8.4-10.2); Hemolysis Index 0
[2020-11-22 11:48] LABS: BUN/Creatinine Ratio 10
[2020-11-22] MEDS: ACETAMINOPHEN 325 MG TAB PO PRN ×2 (12:12→20:44)
[2020-11-22] MEDS: FAMOTIDINE 20 MG TAB PO SCH ×2 (12:13→22:24)
--- NOTE | 2020-11-22 12:36 | Discharge Summary ---
Providers - Providers Date of Admission: 11/20/20 13:15 Date of discharge: 11/23/20 Attending physician: FERNANDA SEARS 11/18/20 20:12 Consult to Physician [CONS] Routine Comment: Dr. Zendejas spoke with Dr. Ochoa @ 2004 Consulting Provider: SHERIE OCHOA Physician Instructions: Reason For Exam: poss api 11/18/20 21:57 Physical Therapy Evaluation and Treat [CONS] Routine Comment: Reason For Exam: Knee pain Primary care physician: MINERAL MIXER Hospitalization Reason for admission: Abdominal pain/history of fall Condition: Fair Pertinent studies: X-ray bilateral knee no significant abnormality x-ray bilateral femur; no acute abnormality CT abdomen and pelvis; severe fatty liver abnormal colonic thickening involving cecum ascending colon concerning for mild colitis received 4 days of antibiotics resolved HIDA scan; no biliary obstruction Hospital course: 35-year-old female patient with significant past medical history of chronic alcohol use anxiety depression was admitted through emergency room with bilateral leg pain and abdominal pain of 4 days duration. Patient was initially evaluated later admitted to the hospital symptomatically managed with IV antibiotics n.p.o. status IV fluids and supportive care Patient had CT abdomen and pelvis showed mucosal thickening involving the cecum and ascending colon concerning for colitis Patient received 4 days of Zosyn with significant improvement Surgery has evaluated the patient Underwent abdominal ultrasound as well as HIDA scan HIDA scan; no biliary obstruction no biliary obstruction patient's diet advanced from clear liquids to regular diet by surgeon patient tolerated the regular food today Surgeon cleared her for discharge and follow-up with primary care physician per schedule Today patient is comfortable no new complaints vital signs stable Complains of generalized weakness Hemodynamically and clinically stable at discharge patient is hemodynamically and clinically stable at discharge Discharge diagnosis; --Hypophosphatemia IV K-Phos x 1 Maintenance oral Phosnak Dose monitor electrolytes --Hypokalemia; Current Visit: Yes Status: Acute Potassium levels within normal limits today Closely monitor --Hypomagnesemia; Current Visit: Yes Status: Acute. Replenished with 4 g of mag yesterday Magnesium levels normal today --Hyponatremia; Current Visit: Yes Status: Acute. Sodium level significantly improved IV normal saline monitor electrolytes Closely monitor electrolytes --Possible acute appendicitis Current Visit: Yes Status: Acute Surgery evaluation noted and appreciated Patient symptoms improved, surgeon started on clear liquids We will closely monitor --Possible colitis ascending colon Current Visit: Yes Status: Acute Symptoms improved, clear liquids Advance as tolerated Surgery evaluation noted and appreciated Recommend HIDA scan, follow the study --Anemia; Current Visit: Yes Status: Acute. Hb droppedfrom 9-7.5-7.3 Closely monitor H&H and transfuse as needed Check stool for occult blood --Moderate malnutrition/hypoalbuminemia Current Visit: Yes Status: Acute. Albumin 3.0, nutrition supplements Supportive care, nutrition consult if needed --History of chronic alcohol abuse Current Visit: Yes Status: Acute Strongly advised to quit alcohol intake, monitor for any alcohol withdrawal sy mptoms Initiate CIWA protocol if needed, thiamine folic acid multivitamin, IV fluids with banana bag --Abnormal LFTs/alcohol hepatitis Current Visit: Yes Status: Acute Treat the underlying cause advised to quit alcohol intake Closely monitor LFTs, GI evaluation if needed --History of fall/probably alcohol related Current Visit: Yes Status: Acute Patient is on fall precaution. PT OT evaluation and recommendations -- Knee contusion secondary to fall Current Visit: Yes Status: Acute Supportive care, pain medications, closely monitor --Possible urinary tract infection Current Visit: Yes Status: Acute Zosyn 4.5 g IV every every 8 hours Follow cultures, plenty of oral, IV fluids. --GERD; Current Visit: Yes Status: Acute IV Protonix --DVT prophylaxis Current Visit: Yes Status: Acute Heparin 5000 units subcu every 8 hours for DVT prophylaxis. Closely monitor the patient and adjust management as needed Plan of care reviewed with the patient and her nurse Follow surgery evaluation recommendations 11/20/2020; patient symptoms significantly improved Surgery evaluation noted and appreciated, started on clear liquids Continue CIWA protocol 11/21/2020; patient is scheduled for HIDA scan Multiple electrolyte abnormalities corrected Continue CIWA Disposition: DC-01 TO HOME OR SELFCARE Final Discharge Diagnosis (Prints w/discharge instructions): Hyponatremia/hypophosphatemia/corrected. hypokalemia/hypomagnesemia corrected. Abdominal pain/acute gastritis. Acute appendicitis ruled out. Acute colitis ruled out. Possible UTI[received 4 days of antibiotics]. Chronic alcohol use. Alcohol withdrawal symptoms improved. Obesity BMI 30.0 Time spent for discharge: 35 minutes Core Measure Documentation - Palliative Care Palliative Care/ Comfort Measures: Not Applicable - Core Measures Any of the following diagnoses?: none Exam - Constitutional Vitals: Temp Pulse Resp BP Pulse Ox 98.6 F 117 H 16 90/60 99 11/22/20 11:31 11/22/20 11:31 11/22/20 11:31 11/22/20 11:31 11/22/20 11:45 General appearance: Present: no acute distress, well-nourished - EENT Eyes: Present: PERRL, EOM intact - Neck Neck: Present: supple, normal ROM - Respiratory Respiratory effort: normal Respiratory: bilateral: diminished, negative: rales, rhonchi, wheezing - Cardiovascular Rhythm: regular Heart Sounds: Present: S1 & S2 - Extremities Extremities: no ischemia, No edema - Abdominal General gastrointestinal: Present: soft, non-tender, non-distended, normal bowel sounds - Integumentary Integumentary: Present: clear, warm - Musculoskeletal Musculoskeletal: strength equal bilaterally, generalized weakness - Psychiatric Psychiatric: appropriate mood/affect, cooperative - Neurologic Neurologic: CNII-XII intact, moves all extremities Plan Activity: advance as tolerated, fall precautions Diet: regular Special Instructions: smoking cessation Additional Instructions: Advised to quit alcohol intake. Advised to seek alcohol rehabilitation program. Also advised to join alcohol Anonymous. Fall precautions. Do not drink and drive. If you have worsening symptoms contact MD or go to emergency Follow up with: PRIMARY CARE,MD [Primary Care Provider] - 7 Days Prescriptions: Folic Acid 1 mg PO DAILY #30 tablet Famotidine [Pepcid] 20 mg PO BID #30 tablet Thiamine [Vitamin B-1] 100 mg PO QDAY #30 tablet
--- NOTE | 2020-11-22 17:23 | Progress Note ---
Assessment and Plan Assessment and plan: --Hypophosphatemia; IV K-Phos x 1 Maintenance oral Phosnak Dose monitor electrolytes --Hypokalemia; Current Visit: Yes Status: Acute Potassium levels within normal limits today Closely monitor --Hypomagnesemia; Current Visit: Yes Status: Acute. Replenished with 4 g of mag yesterday Magnesium levels normal today --Hyponatremia; Current Visit: Yes Status: Acute. Sodium level significantly improved IV normal saline monitor electrolytes Closely monitor electrolytes --Possible acute appendicitis Current Visit: Yes Status: Acute Surgery evaluation noted and appreciated Patient symptoms improved, surgeon started on clear liquids We will closely monitor --Possible colitis ascending colon Current Visit: Yes Status: Acute Symptoms improved, clear liquids Advance as tolerated Surgery evaluation noted and appreciated Recommend HIDA scan, follow the study --Anemia; Current Visit: Yes Status: Acute. Hb droppedfrom 9-7.5-7.3 Closely monitor H&H and transfuse as needed Check stool for occult blood --Moderate malnutrition/hypoalbuminemia Current Visit: Yes Status: Acute. Albumin 3.0, nutrition supplements Supportive care, nutrition consult if needed --History of chronic alcohol abuse Current Visit: Yes Status: Acute Strongly advised to quit alcohol intake, monitor for any alcohol withdrawal symptoms Initiate CIWA protocol if needed, thiamine folic acid multivitamin, IV fluids with banana bag --Abnormal LFTs/alcohol hepatitis Current Visit: Yes Status: Acute Treat the underlying cause advised to quit alcohol intake Closely monitor LFTs, GI evaluation if needed --History of fall/probably alcohol related Current Visit: Yes Status: Acute Patient is on fall precaution. PT OT evaluation and recommendations -- Knee contusion secondary to fall Current Visit: Yes Status: Acute Bilateral x-ray knee no acute abnormality Bilateral knee x-ray femur no acute abnormality PT evaluated the patient, recommend home health PT Rolling walker --Possible urinary tract infection Current Visit: Yes Status: Acute Zosyn 4.5 g IV every every 8 hours Follow cultures, plenty of oral, IV fluids. --GERD; Current Visit: Yes Status: Acute IV Protonix --DVT prophylaxis Current Visit: Yes Status: Acute Heparin 5000 units subcu every 8 hours for DVT prophylaxis. Closely monitor the patient and adjust management as needed Plan of care reviewed with the patient and her nurse Follow surgery evaluation recommendations 11/20/2020; patient symptoms significantly improved Surgery evaluation noted and appreciated, started on clear liquids Continue CIWI protocol 11/21/2020; patient is scheduled for HIDA scan Multiple electrolyte abnormalities corrected Continue CIWA 11/22/2020; Patient complains of generalized weakness Surgeon cleared for discharge PT evaluation noted and appreciated Nutrition supplements, DC pain medications Out of bed to chair, possible discharge tomorrow if stable I called and discussed with patient's mother Aditi Lombardi and discussed patient's condition, treatment And discharge planning. Mother was not willing for discharge Patient also complains of generalized lower extremity weakness Physical therapy evaluated and recommended rolling walker We will hold the discharge today, possible discharge home tomorrow if stable History Interval history: I have seen and examined the patient at the bedside this afternoon patient's chart and medications reviewed Patient had HIDA scan yesterday which was normal no biliary obstruction Surgeon Dr. Ochoa started on regular diet and cleared for discharge however, patient complains of severe generalized weakness And has not eaten for the last 3 days and feels very weak Requested PT to evaluate and treat recommended home health and walker Patient is in mild distress, complains of generalized weakness Vital signs reviewed Hospitalist Physical - Constitutional Vitals: Temp Pulse Resp BP Pulse Ox 98.3 F 89 16 86/45 96 11/22/20 15:59 11/22/20 15:59 11/22/20 15:59 11/22/20 15:59 11/22/20 15:59 General appearance: Present: no acute distress, well-nourished - EENT Eyes: Present: PERRL, EOM intact - Neck Neck: Present: supple, normal ROM - Respiratory Respiratory effort: normal Respiratory: bilateral: diminished, negative: rales, rhonchi, wheezing - Cardiovascular Rhythm: regular Heart Sounds: Present: S1 & S2 - Extremities Extremities: no ischemia, No edema - Abdominal General gastrointestinal: soft, non-tender, non-distended, normal bowel sounds - Integumentary Integumentary: Present: clear, warm - Psychiatric Psychiatric: appropriate mood/affect, cooperative - Neurologic Neurologic: CNII-XII intact, moves all extremities Results - Labs CBC & Chem 7: 11/21/20 04:25 11/22/20 10:45 Labs: Laboratory Last Values WBC 4.2 K/mm3 (4.5-11.0) L 11/20/20 04:26 RBC 2.28 M/mm3 (3.65-5.03) L 11/20/20 04:26 Hgb 7.5 gm/dl (10.1-14.3) L 11/21/20 04:25 Hct 23.0 % (30.3-42.9) L 11/21/20 04:25 MCV 95 fl (79-97) 11/20/20 04:26 MCH 32 pg (28-32) 11/20/20 04:26 MCHC 34 % (30-34) 11/20/20 04:26 RDW 29.8 % (13.2-15.2) H 11/20/20 04:26 Plt Count 107 K/mm3 (140-440) L 11/20/20 04:26 Add Manual Diff Complete 11/20/20 04:26 Total Counted 100 11/20/20 04:26 Seg Neuts % (Manual) 73.0 % (40.0-70.0) H 11/20/20 04:26 Band Neutrophils % 4.0 % 11/18/20 13:23 Lymphocytes % (Manual) 25.0 % (13.4-35.0) 11/20/20 04:26 Monocytes % (Manual) 2.0 % (0.0-7.3) 11/20/20 04:26 Eosinophils % (Manual) 2.0 % (0.0-4.3) 11/19/20 04:35 Nucleated RBC % Not Reportable 11/20/20 04:26 Seg Neutrophils # Man 3.1 K/mm3 (1.8-7.7) 11/20/20 04:26 Band Neutrophils # 0.0 K/mm3 11/20/20 04:26 Lymphocytes # (Manual) 1.1 K/mm3 (1.2-5.4) L 11/20/20 04:26 Abs React Lymphs (Man) 0.0 K/mm3 11/20/20 04:26 Monocytes # (Manual) 0.1 K/mm3 (0.0-0.8) 11/20/20 04:26 Eosinophils # (Manual) 0.0 K/mm3 (0.0-0.4) 11/20/20 04:26 Basophils # (Manual) 0.0 K/mm3 (0.0-0.1) 11/20/20 04:26 Metamyelocytes # 0.0 K/mm3 11/20/20 04:26 Myelocytes # 0.0 K/mm3 11/20/20 04:26 Promyelocytes # 0.0 K/mm3 11/20/20 04:26 Blast Cells # 0.0 K/mm3 11/20/20 04:26 WBC Morphology Not Reportable 11/20/20 04:26 Hypersegmented Neuts Not Reportable 11/20/20 04:26 Hyposegmented Neuts Not Reportable 11/20/20 04:26 Hypogranular Neuts Not Reportable 11/20/20 04:26 Smudge Cells Not Reportable 11/20/20 04:26 Toxic Granulation Not Reportable 11/20/20 04:26 Toxic Vacuolation Not Reportable 11/20/20 04:26 Dohle Bodies Not Reportable 11/20/20 04:26 Pelger-Huet Anomaly Not Reportable 11/20/20 04:26 Stefani Rods Not Reportable 11/20/20 04:26 Platelet Estimate Consistent w auto 11/20/20 04:26 Clumped Platelets Not Reportable 11/20/20 04:26 Plt Clumps, EDTA Not Reportable 11/20/20 04:26 Large Platelets Not Reportable 11/20/20 04:26 Giant Platelets Not Reportable 11/20/20 04:26 Platelet Satelliting Not Reportable 11/20/20 04:26 Plt Morphology Comment Not Reportable 11/20/20 04:26 RBC Morphology Not Reportable 11/20/20 04:26 Dimorphic RBCs Not Reportable 11/20/20 04:26 Polychromasia Not Reportable 11/20/20 04:26 Hypochromasia 1+ 11/20/20 04:26 Poikilocytosis Not Reportable 11/20/20 04:26 Anisocytosis 1+ 11/20/20 04:26 Microcytosis Not Reportable 11/20/20 04:26 Macrocytosis Not Reportable 11/20/20 04:26 Spherocytes Not Reportable 11/20/20 04:26 Pappenheimer Bodies Not Reportable 11/20/20 04:26 Sickle Cells Not Reportable 11/20/20 04:26 Target Cells 1+ 11/20/20 04:26 Tear Drop Cells Not Reportable 11/20/20 04:26 Ovalocytes Not Reportable 11/20/20 04:26 Helmet Cells Not Reportable 11/20/20 04:26 [place] Bodies Not Reportable 11/20/20 04:26 [place] Rings Not Reportable 11/20/20 04:26 Mikael Cells Not Reportable 11/20/20 04:26 Bite Cells Not Reportable 11/20/20 04:26 Crenated Cell Not Reportable 11/20/20 04:26 Elliptocytes Not Reportable 11/20/20 04:26 Acanthocytes (Spur) Not Reportable 11/20/20 04:26 Rouleaux Not Reportable 11/20/20 04:26 Hemoglobin C Crystals Not Reportable 11/20/20 04:26 Schistocytes Not Reportable 11/20/20 04:26 Malaria parasites Not Reportable 11/20/20 04:26 Artemio Bodies Not Reportable 11/20/20 04:26 Hem Pathologist Commnt No 11/20/20 04:26 Sodium 136 mmol/L (137-145) L 11/22/20 10:45 Potassium 4.1 mmol/L (3.6-5.0) 11/22/20 10:45 Chloride 102.0 mmol/L (98-107) 11/22/20 10:45 Carbon Dioxide 27 mmol/L (22-30) 11/22/20 10:45 Anion Gap 11 mmol/L 11/22/20 10:45 BUN 3 mg/dL (7-17) L 11/22/20 10:45 Creatinine 0.3 mg/dL (0.6-1.2) L 11/22/20 10:45 Estimated GFR > 60 ml/min 11/22/20 10:45 BUN/Creatinine Ratio 10 % 11/22/20 10:45 Glucose 85 mg/dL (65-100) 11/22/20 10:45 Calcium 8.2 mg/dL (8.4-10.2) L 11/22/20 10:45 Phosphorus 2.70 mg/dL (2.5-4.5) D 11/22/20 10:45 Magnesium 1.70 mg/dL (1.7-2.3) 11/22/20 10:45 Total Bilirubin 8.60 mg/dL (0.1-1.2) H 11/18/20 13:23 AST 95 units/L (5-40) H 11/18/20 13:23 ALT 41 units/L (7-56) 11/18/20 13:23 Alkaline Phosphatase 233 units/L (35-129) H 11/18/20 13:23 Total Protein 6.3 g/dL (6.3-8.2) 11/18/20 13:23 Albumin 3.1 g/dL (3.9-5) L 11/18/20 13:23 Albumin/Globulin Ratio 1.0 % 11/18/20 13:23 Lipase 64 units/L (13-60) H 11/18/20 13:23 HCG, Quant < 2 mIU/mL (0-4) 11/18/20 13:23 Urine Color Bri (Yellow) 11/18/20 14:27 Urine Turbidity Clear (Clear) 11/18/20 14:27 Urine pH 5.0 (5.0-7.0) 11/18/20 14:27 Ur Specific Terrell 1.035 (1.003-1.030) H 11/18/20 14:27 Urine Protein <15 mg/dl mg/dL (Negative) 11/18/20 14:27 Urine Glucose (UA) Negative mg/dL (Negative) 11/18/20 14:27 Urine Ketones Negative mg/dL (Negative) 11/18/20 14:27 Urine Blood Small (Negative) A 11/18/20 14:27 Urine Nitrite Negative (Negative) 11/18/20 14:27 Ur Reducing Substances Not Reportable 11/18/20 14:27 Urine Bilirubin Moderate (Negative) 11/18/20 14:27 Urine Ictotest Not Reportable 11/18/20 14:27 Urine Urobilinogen < 2.0 mg/dL (<2.0) 11/18/20 14:27 Ur Leukocyte Esterase Small (Negative) 11/18/20 14:27 Urine WBC (Auto) 43.0 /HPF (0.0-6.0) H 11/18/20 14:27 Urine RBC (Auto) 10.0 /HPF (0.0-6.0) 11/18/20 14:27 U Epithel Cells (Auto) 7.0 /HPF (0-13.0) 11/18/20 14:27 Urine Mucus 3+ /HPF 11/18/20 14:27 Urine Opiates Screen Negative 11/18/20 14:27 Urine Methadone Screen Negative 11/18/20 14:27 Ur Barbiturates Screen Negative 11/18/20 14:27 Ur Phencyclidine Scrn Negative 11/18/20 14:27 Ur Amphetamines Screen Negative 11/18/20 14:27 U Benzodiazepines Scrn Negative 11/18/20 14:27 Urine Cocaine Screen Negative 11/18/20 14:27 U Marijuana (THC) Screen Negative 11/18/20 14:27 Drugs of Abuse Note Disclamer 11/18/20 14:27 Mckeon/IV: Voiding Method Toilet Active Medications - Current Medications Current Medications: Generic Name Dose Route Start Last Admin Trade Name Freq PRN Reason Stop Dose Admin Acetaminophen 650 mg 11/18/20 21:43 11/22/20 12:12 Acetaminophen 325 Mg Tab PO 650 mg Q4H PRN Administration Pain MILD(1-3)/Fever >100.5/SWIFT Albuterol 2.5 mg 11/18/20 21:43 Albuterol 2.5 Mg/3 Ml Nebu IH Q4HRT PRN Shortness Of Breath Famotidine 20 mg 11/22/20 10:00 11/22/20 12:13 Famotidine 20 Mg Tab PO 20 mg BID OUMAR Administration Heparin Sodium (Porcine) 5,000 unit 11/18/20 22:00 11/22/20 16:01 Heparin 5,000 Unit/1 Ml Vial SUB-Q 5,000 unit Q8HR OUMAR Administration Hydralazine HCl 10 mg 11/18/20 21:44 11/21/20 13:43 Hydralazine 20 Mg/1 Ml Inj IV 10 mg Q6H PRN Administration htn Piperacillin Sod/Tazobactam Sod 4.5 gm in 100 mls @ 200 mls/hr 11/19/20 06:00 11/22/20 16:00 Zosyn/Ns 4.5gm/100ml IV 11/24/20 05:59 200 mls/hr Q8H OUMAR Administration Protocol Sodium Chloride 1,000 mls @ 100 mls/hr 11/19/20 09:00 11/22/20 05:39 Nacl 0.9% 1000 Ml IV 100 mls/hr DIRECT OUMAR Administration Lorazepam 2 mg 11/18/20 20:12 11/22/20 00:02 Lorazepam 2 Mg/Ml Vial IV 2 mg Q1HR PRN Administration CIWA-Ar 8-15 Lorazepam 4 mg 11/18/20 20:12 Lorazepam 2 Mg/Ml Vial IV Q1HR PRN CIWA-Ar 16-25 Lorazepam 4 mg 11/18/20 20:12 Lorazepam 2 Mg/Ml Vial IV Q15MIN PRN CIWA-Ar >25 Morphine Sulfate 2 mg 11/18/20 21:43 11/22/20 05:31 Morphine 2 Mg/1 Ml Inj IV 2 mg Q4H PRN Administration Pain, Moderate (4-6) Ondansetron HCl 4 mg 11/18/20 21:43 11/20/20 21:06 Ondansetron 4 Mg/2 Ml Inj IV 4 mg Q8H PRN Administration Nausea And Vomiting Sodium Chloride 10 ml 11/18/20 22:00 11/22/20 12:13 Sodium Chloride 0.9% 10 Ml Flush Syringe IV Not Given BID OUMAR Sodium Chloride 10 ml 11/18/20 21:43 Sodium Chloride 0.9% 10 Ml Flush Syringe IV PRN PRN LINE FLUSH
--- NOTE | 2020-11-22 17:34 | Event Note ---
Date: 11/22/20 I called and discussed with patient's mother Aditi Willard and discussed patient's condition, treatment And discharge planning. Mother was not willing to take her back. Patient also complains of generalized lower extremity weakness Physical therapy evaluated and recommended rolling walker, home PT We will hold the discharge today, nutrition supplements , out of bed to chair Ambulate as tolerated and possible discharge home tomorrow if stable
[2020-11-23] MEDS: HEPARIN 5,000 UNIT/1 ML VIAL SUB-Q SCH (05:08)
[2020-11-23] MEDS: PIPERACIL/TAZOBACTA 4.5/NS 100 4.5 GM/100 ML VIAL IV SCH (08:57)
[2020-11-23] MEDS: FAMOTIDINE 20 MG TAB PO SCH (10:11)
[2020-11-23 12:33] VITALS: BP 113/68
[2020-11-24] MEDS ORDERED: FAMOTIDINE 20 MG/2 ML INJ IV SCH (10:00)
== END 2020-11-23 16:29 | disposition home or self-care (01) | DRG 433 ==
LOC: ED 12:15 → 3A 20:16 → 3B-SURG 20:34 → OBSVTOIN 11-20 13:15
PROVIDERS: ADMIT Hospitalist; ATTEND Internal Medicine
DX: K70.10 Alcoholic hepatitis without ascites (principal); E87.1 Hypo-osmolality and hyponatremia; E44.0 Moderate protein-calorie malnutrition; N30.01 Acute cystitis with hematuria; R18.8 Other ascites; K29.00 Acute gastritis without bleeding; W19.XXXA Unspecified fall, initial encounter; F41.9 Anxiety disorder, unspecified; E83.39 Other disorders of phosphorus metabolism; E87.6 Hypokalemia; E83.42 Hypomagnesemia; D64.9 Anemia, unspecified; F10.10 Alcohol abuse, uncomplicated; S80.00XA Contusion of unspecified knee, initial encounter; K21.9 Gastro-esophageal reflux disease without esophagitis; Z68.30 Body mass index [BMI] 30.0-30.9, adult; Y93.89 Activity, other specified; Y92.89 Other specified places as the place of occurrence of the external cause; Y99.8 Other external cause status
CPT/HCPCS: 36415; 74177; 78226; 80048; 80053; 80307; 81001; 83690; 83735; 84100; 84702; 85007; 85014; 85018; 85025; 96365; 96367; 96375; 99406; G0378; A9537; J0360; J1170; J1644; J2060; J2270; J2405; J2543; J3411; J3475; J3480; J7030; J7040; Q9967

== ENCOUNTER 2022-01-17 16:40 | Emergency (ER) | payer SELFPAY ==
[2022-01-17 16:47] VITALS: BP 118/75
== END 2022-01-18 03:40 | disposition left against medical advice (07) ==
LOC: ED 16:40
DX: R10.2 Pelvic and perineal pain (principal); Z53.21 Procedure and treatment not carried out due to patient leaving prior to being seen by health care provider